=== PATIENT | female | born 1980 | race Caucasian/White ===

== ENCOUNTER 2020-05-18 17:49 | Emergency (ER) | payer OTHER ==
--- NOTE | 2020-05-18 19:24 | RAD REPORT ---
EXAM DESCRIPTION: CTSpine Lumbar Wo Con05/18/2020 7:08 pm CLINICAL HISTORY: Back injury with back pain and radiculopathy status post fall from a scooter COMPARISON: None TECHNIQUE: Computed axial tomography lumbar spine was obtained with coronal and sagittal reconstruct ion. All CT scans are performed using dose optimization technique as appropriate and may include automated exposure control or mA/KV adjustment according to patient size. FINDINGS: Bone plugs and anterior screws have been placed from L4-S1. The hardware is in good positi on. Left pedicular screws have been placed from L4-S1 No fracture or dislocation noted. A Schmorl's node invaginating into the superior vertebral endplate of T12. IMPRESSION: Negative for a lumbar fracture. If patient continues to have symptoms to suggest spinal canal pathology MRI would be recommended
--- NOTE | 2020-05-18 19:29 | RAD REPORT ---
EXAM DESCRIPTION: CT - Pelvis Wo Cont - 05/18/2020 7:08 pm CLINICAL HISTORY: Pelvic pain status post fall COMPARISON: None. TECHNIQUE: Computed axial tomography of the pelvis was obtained. Coronal and sagittal reconstruction performed All CT scans are performed using dose optimization technique as appropriate and may include automated exposure control or mA/KV adjustment according to patient size. FINDINGS: No fracture or dislocation is seen. Muscles are normal size and density. A subcutaneous contusion is not noted 33 millimeter right ovarian cyst without significant free fluid IMPRESSION: No fracture seen
--- NOTE | 2020-05-18 20:08 | ER ---
Nurse's Notes [facility] Name: Isa Hurst Age: 39 yrs Sex: Female : 1980 Arrival Date: 05/18/2020 Time: 17:[address] Private MD: Diagnosis: Fall from non-moving motorized mobility scooter;Chronic pain syndrome Presentation: 05/18 17:51 Chief complaint: EMS states: she was in a scooter shopping at [employer] and said she tw2 was turning around looking for her kids and slipped out of the scooter, says she has PTSD and she said she got really scared and worked up and her LEFT foot that is in a fracture Boot hurts her and her low back hurts her and she feels anxious. vs stable. Coronavirus screen: Patient denies a cough. Patient denies shortness of breath or difficulty breathing. Patient denies measured and/or subjective temperature greater than 100.4F prior to today's visit. Patient denies travel on a cruise ship or to a country the [facility] currently lists as an affected area. Patient denies contact with known and/or suspected case of COVID-19. Ebola Screen: Patient denies travel to an Ebola-affected area in the 21 days before illness onset. Initial Sepsis Screen: Does the patient meet any 2 criteria? HR > 90 bpm. No. Patient's initial sepsis screen is negative. Does the patient have a suspected source of infection? No. Patient's initial sepsis screen is negative. Risk Assessment: Do you want to hurt yourself or someone else? Patient reports no desire to harm self or others. Onset of symptoms was May 18, 2020. 17:51 Method Of Arrival: EMS: [facility] tw2 17:51 Acuity: ANGELIQUE 3 tw2 Triage Assessment: 17:54 General: Appears in no apparent distress. uncomfortable, obese, Behavior is anxious, tw2 talkative states "im nervous and anxious". Pain: Complains of pain in back and left foot. PATIENT CLERICAL ASSISTANT: 17:58 LMP N/A - tw2 Historical: - Allergies: 17:57 Sulfa (Sulfonamide Antibiotics); tw2 17:57 PENICILLINS; tw2 - PMHx: 17:57 PTSD; tw2 - Immunization history:: Adult Immunizations. - Social history:: Smoking status: . Screenin:57 Abuse screen: Denies threats or abuse. Nutritional screening: No deficits noted. tw2 Tuberculosis screening: No symptoms or risk factors identified. Fall Risk None identified. Assessment: 17:55 General: Appears uncomfortable, obese, well groomed, Behavior is cooperative, anxious. tw2 Pain: Complains of pain in left foot and back. Neuro: Level of Consciousness is awake, alert, obeys commands, Oriented to person, place, time, situation. Cardiovascular: Heart tones S1 S2 Patient's skin is warm and dry. Respiratory: Airway is patent Respiratory effort is even, unlabored, Respiratory pattern is regular, symmetrical, Breath sounds are clear bilaterally. GI: No signs and/or symptoms were reported involving the gastrointestinal system. Abdomen is round non-distended, obese, Bowel sounds present X 4 quads. : No signs and/or symptoms were reported regarding the genitourinary system. EENT: No signs and/or symptoms were reported regarding the EENT system. Derm: No signs and/or symptoms reported regarding the dermatologic system. Musculoskeletal: Circulation, motion, and sensation intact. Range of motion: intact in all extremities, Reports pain in left foot and back. 18:57 Reassessment: No changes from previously documented assessment. Patient and/or family tw2 updated on plan of care and expected duration. Pain level reassessed. Patient is alert, oriented x 3, equal unlabored respirations, skin warm/dry/pink. 19:00 Reassessment: Patient appears in no apparent distress at this time. Patient and/or jb4 family updated on plan of care and expected duration. Pain level reassessed. Patient is alert, oriented x 3, equal unlabored respirations, skin warm/dry/pink. 20:00 Reassessment: Patient appears in no apparent distress at this time. Patient and/or jb4 family updated on plan of care and expected duration. Pain level reassessed. Patient is alert, oriented x 3, equal unlabored respirations, skin warm/dry/pink. 20:15 Reassessment: D/c pending ride home. jb4 21:12 Reassessment: Patient appears in no apparent distress at this time. Patient and/or jb4 family updated on plan of care and expected duration. Pain level reassessed. Patient is alert, oriented x 3, equal unlabored respirations, skin warm/dry/pink. Pt reports pain has decreased. Verbalized understanding of d/c and follow up instructions. Questions and concerns addressed. Assisted to friends vehicle via wheelchair. 21:12 Cardiovascular: Capillary refill < 3 seconds in bilateral toes. jb4 Vital Signs: 17:51 BP 144 / 88; Pulse 100; Resp 17; Temp 97.9(TE); Pulse Ox 99% on R/A; Weight 104.33 kg tw2 (R); Height 5 ft. 5 in. (165.10 cm); Pain 10/10; 18:58 BP 146 / 92; Pulse 98; Resp 19; Pulse Ox 100% on R/A; tw2 20:30 BP 131 / 90; Pulse 86; Resp 16; Pulse Ox 100% on R/A; jb4 17:51 Body Mass Index 38.27 (104.33 kg, 165.10 cm) tw2 ED Course: 17:51 Patient arrived in ED. tw2 17:52 Bed in low position. Call light in reach. Side rails up X2. Pulse ox on. NIBP on. tw2 17:54 Triage completed. tw2 17:54 Arm band placed on. tw2 17:58 Melissa Suarez RN is Primary Nurse. tw2 18:15 Stacie Davenport FNP-C is PHCP. snw 18:16 Les Camacho MD is Attending Physician. snw 19:08 CT Lumbar Spine Wo Con In Process Unspecified. EDMS 19:08 CT Pelvis wo Cont In Process Unspecified. EDMS 19:09 Report given to JORGE A Garcia. tw2 19:17 Primary Nurse role handed off by Melissa Suarez RN jb4 19:17 Tien Ham, JORGE A is Primary Nurse. jb4 19:39 Foot Left 3 View XRAY In Process Unspecified. EDMS 21:14 No provider procedures requiring assistance completed. Patient did not have IV access jb4 during this emergency room visit. Administered Medications: 20:26 Drug: TORadol 30 mg Route: IM; Site: right gluteus; jb4 21:00 Follow up: Response: No adverse reaction; Pain is decreased jb4 Outcome: 20:07 Discharge ordered by . snw 21:14 Discharged to home via wheelchair, with friend. jb4 21:14 Condition: stable 21:14 Discharge instructions given to patient, Instructed on discharge instructions, follow up and referral plans. medication usage, Demonstrated understanding of instructions, follow-up care, medications, Prescriptions given X 2. 21:15 Patient left the ED. jb4 Signatures: Dispatcher [employer] EDMS Stacie Davenport, CARE WORKER-C CARE WORKER-Dougw Melissa Suarez, RN RN tw2 Tien Ham RN RN jb4 Corrections: (The following items were deleted from the chart) 19:05 17:51 Chief complaint: EMS states: she was in a scooter shopping at [employer] and tw2 said she was turning around looking for her kids and slipped out of the scooter, says she has PTSD and she said she got really scared and worked up and her LEFT foot that is in a Unna Boot hurts her and her low back hurts her and she feels anxious. vs stable. tw2
--- NOTE | 2020-05-18 20:08 | EDPHYS ---
Physician Documentation [facility] Name: Isa Hurst Age: 39 yrs Sex: Female : 1980 Arrival Date: 05/18/2020 Time: 17:[address] Private MD: Les Yan HPI: 05/18 21:03 This 39 yrs old Female presents to ER via EMS with complaints of Foot Pain, snw Low Back Pain. 21:15 The patient presents with pain, that is acute. The complaints affect the left hip and snw lateral aspect of left foot. Context: The problem was sustained at a store, resulted from the patient falling, while sitting, the patient can partially bear weight, uses a brace, Problem is a result from a previous injury: in walking boot with screws and place to fibula. Onset: The symptoms/episode began/occurred suddenly, just prior to arrival, and became persistent. Associated signs and symptoms: The patient has no apparent associated signs or symptoms, Pertinent positives:. Treatment prior to arrival includes: no previous treatment. Severity of symptoms: At their worst the symptoms were moderate. The patient has experienced similar episodes in the past. It is unknown whether or not the patient has recently seen a physician. LPN CARE MANAGER: 17:58 LMP N/A - tw2 Historical: - Allergies: 17:57 Sulfa (Sulfonamide Antibiotics); tw2 17:57 PENICILLINS; tw2 - PMHx: 17:57 PTSD; tw2 - Immunization history:: Adult Immunizations. - Social history:: Smoking status: . ROS: 21:17 Constitutional: Negative for fever, chills, and weight loss, Eyes: Negative for injury, snw pain, redness, and discharge, ENT: Negative for injury, pain, and discharge, Neck: Negative for injury, pain, and swelling, Cardiovascular: Negative for chest pain, palpitations, and edema, Respiratory: Negative for shortness of breath, cough, wheezing, and pleuritic chest pain, Abdomen/GI: Negative for abdominal pain, nausea, vomiting, diarrhea, and constipation, Back: positive for injury and pain, fell from scooter and landed on left buttock/hip : Negative for injury, bleeding, discharge, and swelling, Skin: Negative for injury, rash, and discoloration, Neuro: Negative for headache, weakness, numbness, tingling, and seizure, Psych: Negative for depression, anxiety, suicide ideation, homicidal ideation, and hallucinations. 21:17 MS/extremity: Positive for injury or acute deformity, pain, of the low back, left hip, left foot. Exam: 21:18 Constitutional: This is a well developed, well nourished patient who is awake, alert, snw and in no acute distress. Head/Face: Normocephalic, atraumatic. Eyes: Pupils equal round and reactive to light, extra-ocular motions intact. Lids and lashes normal. Conjunctiva and sclera are non-icteric and not injected. Cornea within normal limits. Periorbital areas with no swelling, redness, or edema. ENT: Nares patent. No nasal discharge, no septal abnormalities noted. Tympanic membranes are normal and external auditory canals are clear. Oropharynx with no redness, swelling, or masses, exudates, or evidence of obstruction, uvula midline. Mucous membranes moist. Neck: Trachea midline, no thyromegaly or masses palpated, and no cervical lymphadenopathy. Supple, full range of motion without nuchal rigidity, or vertebral point tenderness. No Meningismus. Chest/axilla: Normal chest wall appearance and motion. Nontender with no deformity. No lesions are appreciated. Cardiovascular: Regular rate and rhythm with a normal S1 and S2. No gallops, murmurs, or rubs. Normal PMI, no JVD. No pulse deficits. Respiratory: Lungs have equal breath sounds bilaterally, clear to auscultation and percussion. No rales, rhonchi or wheezes noted. No increased work of breathing, no retractions or nasal flaring. Abdomen/GI: Soft, non-tender, with normal bowel sounds. No distension or tympany. No guarding or rebound. No evidence of tenderness throughout. Back: No spinal tenderness. No costovertebral tenderness. Full range of motion. Skin: Warm, dry with normal turgor. Normal color with no rashes, no lesions, and no evidence of cellulitis. Neuro: Awake and alert, GCS 15, oriented to person, place, time, and situation. Cranial nerves II-XII grossly intact. Motor strength 5/5 in all extremities. Sensory grossly intact. Cerebellar exam normal. Normal gait. Psych: Awake, alert, with orientation to person, place and time. Behavior, mood, and affect are within normal limits. 21:18 Musculoskeletal/extremity: Extremities: grossly normal except: noted in the dorsum of left foot: swelling, tenderness, ROM: limited active range of motion due to pain, in the left ankle, limited passive range of motion due to pain, Circulation is intact in all extremities. Pulses: are normal with no appreciated deficits, Sensation intact. Vital Signs: 17:51 BP 144 / 88; Pulse 100; Resp 17; Temp 97.9(TE); Pulse Ox 99% on R/A; Weight 104.33 kg tw2 (R); Height 5 ft. 5 in. (165.10 cm); Pain 10/10; 18:58 BP 146 / 92; Pulse 98; Resp 19; Pulse Ox 100% on R/A; tw2 20:30 BP 131 / 90; Pulse 86; Resp 16; Pulse Ox 100% on R/A; jb4 17:51 Body Mass Index 38.27 (104.33 kg, 165.10 cm) tw2 MDM: 18:16 Patient medically screened. [facility] 20:09 Data reviewed: vital signs, nurses notes. Data interpreted: Pulse oximetry: on room air snw is 100 %. Interpretation: normal. Counseling: I had a detailed discussion with the patient and/or guardian regarding: the historical points, exam findings, and any diagnostic results supporting the discharge/admit diagnosis, radiology results, the need for outpatient follow up, to return to the emergency department if symptoms worsen or persist or if there are any questions or concerns that arise at home. Special discussion: I have referred the patient to see his PCP for further evaluation of high blood pressure. Based on the history and exam findings, there is no indication for further emergent testing or inpatient evaluation. I discussed with the patient/guardian the need to see the touch up painter for further evaluation of the symptoms. I discussed with the patient/guardian the need to see the primary care provider for further evaluation of the symptoms. 05/18 18:16 Order name: Foot Left 3 View XRAY; Complete Time: 20:33 snw 05/18 18:45 Order name: CT Lumbar Spine Wo Con; Complete Time: 19:35 snw 05/18 18:45 Order name: CT Pelvis wo Cont; Complete Time: 19:35 snw Administered Medications: 20:26 Drug: TORadol 30 mg Route: IM; Site: right gluteus; jb4 21:00 Follow up: Response: No adverse reaction; Pain is decreased jb4 Disposition: 05/19 13:30 Co-signature as Attending Physician, Les Camacho MD I agree with the assessment and fred plan of care. Disposition: 05/18/20 20:07 Discharged to Home. Impression: Fall from non-moving motorized mobility scooter, Chronic pain syndrome. - Condition is Stable. - Discharge Instructions: Contusion, Chronic Pain, Fall Prevention in the Home, Acupuncture. - Prescriptions for Diclofenac Sodium 75 mg Oral Tablet Sustained Release - take 1 tablet by ORAL route 2 times per day; 30 tablet. orphenadrine citrate 100 mg Oral Tablet Sustained Release - take 1 tablet by ORAL route 2 times per day As needed; 20 tablet. - Medication Reconciliation Form, Thank You Letter, Antibiotic Education, Prescription Opioid Use form. - Follow up: Emergency Department; When: As needed; Reason: Worsening of condition. Follow up: Private Physician; When: 2 - 3 days; Reason: Recheck today's complaints, Continuance of care, Re-evaluation by your physician. Signatures: Dispatcher [employer] [facility] Les Camacho MD MD cha Therrien, Shelly, MACHINE PACKER-C MACHINE PACKER-Csnw Melissa Suarez RN RN tw2 Tien Ham RN RN jb4 Corrections: (The following items were deleted from the chart) 05/18 19:43 18:17 Lumbar Spine 3 Views+RAD.RAD.BRZ ordered. [facility] 21:15 20:07 05/18/2020 20:07 Discharged to Home. Impression: Fall from non-moving motorized jb4 mobility scooter; Chronic pain syndrome. Condition is Stable. Forms are Medication Reconciliation Form, Thank You Letter, Antibiotic Education, Prescription Opioid Use. Follow up: Emergency Department; When: As needed; Reason: Worsening of condition. Follow up: Private Physician; When: 2 - 3 days; Reason: Recheck today's complaints, Continuance of care, Re-evaluation by your physician. snw
--- NOTE | 2020-05-18 20:19 | RAD REPORT ---
EXAM DESCRIPTION: RAD - Foot Left 3 View - 05/18/2020 7:40 pm CLINICAL HISTORY: Left Foot pain status post fall FINDINGS: An avulsion fracture involves the base of fifth metatarsal. Age is indeterminate. Clinical correlation is needed see patient has point tenderness to suggest acuity No dislocation
[2020-05-18] MEDS ORDERED: KETOROLAC 30 MG/ML INJ ONE (20:28)
[2020-05-18 21:33] VITALS: TEMP 97.9
[2020-05-18 21:34] VITALS: O2SAT 100
[2020-05-18 21:35] VITALS: BP 131/90
== END 2020-05-18 21:15 | disposition home or self-care (01) ==
LOC: ER 17:49
DX: G89.4 Chronic pain syndrome (principal); W05.1XXA Fall from non-moving nonmotorized scooter, initial encounter; Y93.9 Activity, unspecified; Y92.512 Supermarket, store or market as the place of occurrence of the external cause; Z88.0 Allergy status to penicillin; Z88.2 Allergy status to sulfonamides; F43.10 Post-traumatic stress disorder, unspecified
CPT/HCPCS: 72131; 72192; 96372; 99284

== ENCOUNTER 2021-07-07 17:34 | Emergency (ER) | payer OTHER ==
--- OUTSIDE RECORDS SUMMARY | 2021-07-07 17:39 | XMS REPORT | Continuity of Care Document ---
:1980 [address] [facility] t Address [address] [place] [address] Care Team Providers Name Role Phone Beatrice ZEPEDA, S Attending Clinician Gerry ZEPEDA Attending Clinician Serenity ZEPEDA, Odilia Attending Clinician Nakul DAILY, A Attending Clinician Problems This patient has no known problems. Allergies, Adverse Reactions, Alerts This patient has no known allergies or adverse reactions. Medications This patient has no known medications. Procedures This patient has no known procedures. Encounters Start End Encounter Admission Attending Care Care Encounter Source Date/Time Date/Time Type Type Clinicians Facility Department ID 2021-07-06 2021-07-07 Emergency SHARMILA Barron [id number] 22:23:00 06:23:00 Bety Bethany Kevin [id number] Tram [id number] [place] [id number] 2021-07-05 2021-07-05 Telephone SHARMILA Garrett [id number] 00:00:00 00:00:00 Mariah Kevin [id number] Tram [id number] [facility] [id number] [address] 2021-07-05 2021-07-05 Telephone SHARMILA Benton [id number] 00:00:00 [facility]00:[facility] [id number] Kevin [id number] Professio [phone] [facility] [address] 2021-06-05 2021-06-05 Office Gerry [facility] [id number] 08:25:23 09:35:48 Visit Mariah Kevin [id number] Tram [id number] Professio [id number] [facility] [address] Building 2021-06-05 2021-06-05 Prep For [facility] [id number] 00:00:00 00:00:00 Surgery Tere Hartley Kevin [id number] Tram [id number] Professio [phone] [facility] 204 [facility] Results This patient has no known results.
[2021-07-07 21:02] LABS: Urine Blood Negative (Negative); Urine Glucose Negative (Negative); Urine Protein Negative (Negative); Urine Specific Gravity 1.025 (1.005-1.030)
[2021-07-07 22:13] LABS: Urine Specific Gravity/Preg 1.025 (1.005-1.030)
[2021-07-08 00:06] LABS: Absolute Lymphocytes (CBC) 1.7 K/uL (0.7-4.9); Basophils % 0.7 % (0-1.3); Hematocrit 30.9 % (36.0-45.0); Lymphocytes % 21.9 % (15.3-44.8); MPV 6.9 fL (7.6-11.3); RBC Red Blood Cell Count 4.09 M/uL (3.86-4.86)
[2021-07-08 00:11] LABS: ALT/SGPT 48 U/L (12-78); AST/SGOT 32 U/L (15-37); Albumin 3.5 g/dL (3.4-5.0); Alkaline Phosphatase 91 U/L (45-117); BUN Blood Urea Nitrogen 13 mg/dL (7-18); Bicarbonate 26 mmol/L (21-32); Bilirubin Direct < 0.1 mg/dL (0-0.2); Bilirubin Total 0.3 mg/dL (0.2-1.0); Glucose Level 94 mg/dL (74-106); Lipase 132 U/L (73-393); Sodium Level 137 mmol/L (136-145)
[2021-07-08] MEDS ORDERED: NA CHLORIDE 0.9% 1,000 ML ONE (00:11)
[2021-07-08] MEDS ORDERED: MORPHINE 4 MG/ML SYR ONE (00:11)
[2021-07-08] MEDS ORDERED: ONDANSETRON 4 MG/2 ML VIAL ONE (00:11)
--- NOTE | 2021-07-08 03:00 | EDPHYS ---
Physician Documentation [facility] Name: Isa Hurst Age: 40 yrs Sex: Female : 1980 Arrival Date: 07/07/2021 Time: 17:36 Bed 10 Private MD: ED Physician Jalen Cruz HPI: 07/07 23:33 This 40 yrs old Female presents to ER via Ambulatory with complaints of pkl Abdominal Pain. 23:33 The patient presents with abdominal pain in the left upper quadrant, in the left lower pkl quadrant. Onset: The symptoms/episode began/occurred yesterday. The symptoms do not radiate. Associated signs and symptoms: none. The patient has experienced similar episodes in the past, a few times, Symptoms started in April 2021. Patient scheduled for exploratory lap on 07/17 21. 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 kg Historical: - Allergies: 19:23 PENICILLINS; kg 19:23 Azithromycin; kg - Home Meds: 19:25 Lisinopril Oral [Active]; gabapentin 300 mg oral tab three times a day [Active]; kg tramadol Oral [Active]; Lunesta oral [Active]; - PMHx: 19:23 Fibromyalgia; Chronic pain; PTSD; kg - PSHx: 19:23 back sx; Cholecystectomy; section; Neck Sx; Ankle Sx; Gastric bypass; Total kg abdominal hysterectomy; - Immunization history:: Adult Immunizations not up to date, Client reports receiving the 2nd dose of the Covid vaccine, Date received: April 2021 Client reports receiving the 1st dose of the Covid vaccine, March 2021. - Social history:: Smoking status: Patient denies any tobacco usage or history of. Patient uses alcohol, occasionally. ROS: 23:33 Eyes: Negative for injury, pain, redness, and discharge, ENT: Negative for injury, pkl pain, and discharge, Neck: Negative for injury, pain, and swelling, Cardiovascular: Negative for chest pain, palpitations, and edema, Respiratory: Negative for shortness of breath, cough, wheezing, and pleuritic chest pain. 23:33 Abdomen/GI: Positive for abdominal pain, of the left upper quadrant and left lower quadrant. 23:33 Back: Negative for pain at rest. 23:33 : Negative for urinary symptoms. 23:33 MS/extremity: Negative for acute changes. 23:33 Skin: Negative for rash. 23:33 Neuro: Negative for altered mental status, loss of consciousness. Exam: 23:33 Head/Face: Normocephalic, atraumatic. Eyes: Pupils equal round and reactive to light, pkl extra-ocular motions intact. Lids and lashes normal. Conjunctiva and sclera are non-icteric and not injected. Cornea within normal limits. Periorbital areas with no swelling, redness, or edema. ENT: Nares patent. No nasal discharge, no septal abnormalities noted. Tympanic membranes are normal and external auditory canals are clear. Oropharynx with no redness, swelling, or masses, exudates, or evidence of obstruction, uvula midline. Mucous membranes moist. Neck: Trachea midline, no thyromegaly or masses palpated, and no cervical lymphadenopathy. Supple, full range of motion without nuchal rigidity, or vertebral point tenderness. No Meningismus. Chest/axilla: Normal chest wall appearance and motion. Nontender with no deformity. No lesions are appreciated. Cardiovascular: Regular rate and rhythm with a normal S1 and S2. No gallops, murmurs, or rubs. Normal PMI, no JVD. No pulse deficits. Respiratory: Lungs have equal breath sounds bilaterally, clear to auscultation and percussion. No rales, rhonchi or wheezes noted. No increased work of breathing, no retractions or nasal flaring. 23:33 Abdomen/GI: Bowel sounds: normal, Palpation: soft, mild abdominal tenderness, in the left upper quadrant and left lower quadrant. 23:33 Back: Exam negative for acute changes. 23:33 : Exam negative for acute changes. 23:33 Musculoskeletal/extremity: Exam is negative for acute changes. 23:33 Skin: Exam negative for rash. 23:33 Neuro: Orientation: is normal, Mentation: is normal, Cranial nerves: grossly normal, Motor: Vital Signs: 19:19 BP 140 / 99; Pulse 97; Resp 17; Temp 97.1(O); Pulse Ox 98% ; Weight 124.74 kg (R); kg Height 5 ft. 5 in. (165.10 cm); Pain 8/10; 0807 00:30 BP 146 / 101; Pulse 78; Resp 16; Pulse Ox 99% on R/A; jb4 03:15 BP 137 / 94; Pulse 81; Resp 16; Pulse Ox 99% on R/A; jb4 07/07 19:19 Body Mass Index 45.76 (124.74 kg, 165.10 cm) kg MDM: 07/07 23:20 Patient medically screened. pkl 07/08 02:55 Data reviewed: vital signs, nurses notes, lab test result(s), radiologic studies, CT pkl scan. ED course: Patient feeling better. Discussed lab and CT Scan result with patient, Advised to follow up with PCP in 2 to 3 days. Patient understood instructions. 07/07 19:30 Order name: Basic Metabolic Panel; Complete Time: 00:23 kg 07/07 19:30 Order name: CBC with Diff; Complete Time: 00:23 kg 07/07 19:30 Order name: Hepatic Function; Complete Time: 00:23 kg 07/07 19:30 Order name: Lipase; Complete Time: 00:23 kg 07/07 21:01 Order name: Urine Dipstick-Ancillary; Complete Time: 23:30 EDMS 07/07 21:12 Order name: Urine --Ancillary (enter results); Complete Time: 23:30 tt3 07/07 19:30 Order name: IV Saline Lock; Complete Time: 23:42 kg 07/07 19:30 Order name: Labs collected and sent; Complete Time: 23:42 kg 07/07 19:30 Order name: XRAY Abdomen 1 View kg 07/07 23:31 Order name: CT Abd/Pelvis - IV Contrast Only pkl Administered Medications: 00:05 Drug: NS 0.9% 1000 ml Route: IV; Rate: 125 ml/hr; Site: right antecubital; jb4 03:20 Follow up: Response: No adverse reaction; IV Status: Order to discontinue infusion jb4 00:05 Drug: morphine 4 mg Route: IVP; Site: right antecubital; jb4 00:35 Follow up: Response: No adverse reaction; Marked relief of symptoms; Pain is decreased; jb4 RASS: Alert and Calm (0) 00:05 Drug: Zofran (Ondansetron) 4 mg Route: IVP; Site: right antecubital; jb4 00:35 Follow up: Response: No adverse reaction; Marked relief of symptoms jb4 Disposition Summary: 07/08/21 03:00 Discharge Ordered Location: Home pkl Condition: Stable pkl Diagnosis - Abdominal pain pkl Followup: pkl - With: Private Physician - When: 2 - 3 days - Reason: Re-evaluation by your physician Forms: - Medication Reconciliation Form pkl - Thank You Letter pkl - Antibiotic Education pkl - Prescription Opioid Use pkl Signatures: Dispatcher [employer] Jalen Perez MD MD pkl Tien Ham RN RN jb4 Carolyn Juarez RN RN kg
--- NOTE | 2021-07-08 03:00 | ER ---
Nurse's Notes [facility] Name: Isa Hurst Age: 40 yrs Sex: Female : 1980 Arrival Date: 07/07/2021 Time: 17:36 Bed 10 Private MD: Diagnosis: Abdominal pain Presentation: 07/07 19:19 Chief complaint: Patient states: Sent over from PCP for elevated WBC. Is scheduled for kg exploratory abdominal sx 07/17. Abdominal pain since APRIL. Coronavirus screen: Client denies travel out of the [place] in the last 14 days. At this time, unable to obtain information related to travel outside the [place] At this time, the client does not indicate any symptoms associated with coronavirus-19. Ebola Screen: Patient negative for fever greater than or equal to 101.5 degrees Fahrenheit, and additional compatible Ebola Virus Disease symptoms Patient denies exposure to infectious person. Patient denies travel to an Ebola-affected area in the 21 days before illness onset. Initial Sepsis Screen: Does the patient meet any 2 criteria? No. Patient's initial sepsis screen is negative. Risk Assessment: Do you want to hurt yourself or someone else? Patient reports no desire to harm self or others. Onset of symptoms was July 06, 2021. 19:19 Method Of Arrival: Ambulatory kg 19:19 Acuity: ANGELIQUE 3 kg 19:28 Initial Sepsis Screen: Does the patient have a suspected source of infection? No. kg Patient's initial sepsis screen is negative. Triage Assessment: 19:27 General: Appears in no apparent distress. Behavior is calm, cooperative, appropriate kg for age, quiet. Pain: Complains of pain in left lower quadrant Pain currently is 8 out of 10 on a pain scale. at worst was 10 out of 10 on a pain scale. level that patient reports is acceptable is 3 out of 10 on a pain scale. Quality of pain is described as aching, stabbing. GI: Reports lower abdominal pain, nausea. 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 kg Historical: - Allergies: 19:23 PENICILLINS; kg 19:23 Azithromycin; kg - Home Meds: 19:25 Lisinopril Oral [Active]; gabapentin 300 mg oral tab three times a day [Active]; kg tramadol Oral [Active]; Lunesta oral [Active]; - PMHx: 19:23 Fibromyalgia; Chronic pain; PTSD; kg - PSHx: 19:23 back sx; Cholecystectomy; section; Neck Sx; Ankle Sx; Gastric bypass; Total kg abdominal hysterectomy; - Immunization history:: Adult Immunizations not up to date, Client reports receiving the 2nd dose of the Covid vaccine, Date received: April 2021 Client reports receiving the 1st dose of the Covid vaccine, March 2021. - Social history:: Smoking status: Patient denies any tobacco usage or history of. Patient uses alcohol, occasionally. Screenin:27 Abuse screen: Denies threats or abuse. Denies injuries from another. Nutritional kg screening: No deficits noted. Tuberculosis screening: No symptoms or risk factors identified. Fall Risk None identified. Assessment: 23:30 General: Appears in no apparent distress. uncomfortable, Behavior is calm, cooperative, jb4 appropriate for age. Pain: Complains of pain in abdomen. Neuro: Level of Consciousness is awake, alert, obeys commands, Oriented to person, place, time, situation. Cardiovascular: Patient's skin is warm and dry. Respiratory: Airway is patent Respiratory effort is even, unlabored, Respiratory pattern is regular, symmetrical. GI: Abdomen is round non-distended, obese, Reports upper abdominal pain, nausea. : No signs and/or symptoms were reported regarding the genitourinary system. EENT: No signs and/or symptoms were reported regarding the EENT system. Derm: Skin is intact, Skin is pink, warm \T\ dry. Musculoskeletal: Circulation, motion, and sensation intact. Range of motion: intact in all extremities. 07/08 00:30 Reassessment: Patient appears in no apparent distress at this time. Patient and/or jb4 family updated on plan of care and expected duration. Pain level reassessed. Patient is alert, oriented x 3, equal unlabored respirations, skin warm/dry/pink. 01:30 Reassessment: Patient appears in no apparent distress at this time. Patient and/or jb4 family updated on plan of care and expected duration. Pain level reassessed. Patient is alert, oriented x 3, equal unlabored respirations, skin warm/dry/pink. 03:00 Reassessment: Patient appears in no apparent distress at this time. Patient and/or jb4 family updated on plan of care and expected duration. Pain level reassessed. Patient is alert, oriented x 3, equal unlabored respirations, skin warm/dry/pink. Vital Signs: 07/07 19:19 BP 140 / 99; Pulse 97; Resp 17; Temp 97.1(O); Pulse Ox 98% ; Weight 124.74 kg (R); kg Height 5 ft. 5 in. (165.10 cm); Pain 8/10; 07/08 00:30 BP 146 / 101; Pulse 78; Resp 16; Pulse Ox 99% on R/A; jb4 03:15 BP 137 / 94; Pulse 81; Resp 16; Pulse Ox 99% on R/A; jb4 07/07 19:19 Body Mass Index 45.76 (124.74 kg, 165.10 cm) kg ED Course: 07/07 17:36 Patient arrived in ED. mr 19:23 Triage completed. kg 19:28 Arm band placed on right wrist. kg 19:28 No provider procedures requiring assistance completed. kg 20:09 XRAY Abdomen 1 View In Process Unspecified. EDMS 23:20 Jalen Cruz MD is Attending Physician. pkl 23:21 Tien Ham, JORGE A is Primary Nurse. jb4 23:40 Initial lab(s) drawn, by ga, sent to lab. Inserted saline lock: 20 gauge in right jb4 antecubital area, using aseptic technique. Blood collected. 07/08 02:26 CT Abd/Pelvis - IV Contrast Only In Process Unspecified. EDMS 03:15 IV discontinued, intact, bleeding controlled, No redness/swelling at site. Pressure jb4 dressing applied. Administered Medications: 00:05 Drug: NS 0.9% 1000 ml Route: IV; Rate: 125 ml/hr; Site: right antecubital; jb4 03:20 Follow up: Response: No adverse reaction; IV Status: Order to discontinue infusion jb4 00:05 Drug: morphine 4 mg Route: IVP; Site: right antecubital; jb4 00:35 Follow up: Response: No adverse reaction; Marked relief of symptoms; Pain is decreased; jb4 RASS: Alert and Calm (0) 00:05 Drug: Zofran (Ondansetron) 4 mg Route: IVP; Site: right antecubital; jb4 00:35 Follow up: Response: No adverse reaction; Marked relief of symptoms jb4 Outcome: 03:00 Discharge ordered by . salomón 03:15 Discharged to home ambulatory. jb4 03:15 Condition: stable 03:15 Discharge instructions given to patient, Instructed on discharge instructions, follow up and referral plans. Demonstrated understanding of instructions, follow-up care. 03:21 Patient left the ED. jb4 Signatures: Dispatcher [employer] EDJalen Grace MD MD pkl RiveraAlmita mr Tien Ham RN RN jb4 Carolyn Juarez RN RN kg
[2021-07-08 03:34] VITALS: TEMP 97.1
[2021-07-08 03:38] VITALS: O2SAT 99
[2021-07-08 03:47] VITALS: BP 137/94
--- NOTE | 2021-07-08 21:06 | RAD REPORT ---
EXAM DESCRIPTION: CT - Abdomen Pelvis W Contrast - 07/08/2021 6:53 am COMPARISON: None. CLINICAL HISTORY: ABD PAIN TECHNIQUE: CT of the abdomen and pelvis was acquired with IV contrast material. Coronal and sagitt al reconstructions were obtained. Automated exposure control was utilized on this examination as a dose lowering technique. FINDINGS: Lung bases: Bibasilar linear opacities are present. Liver: Normal. Gallbladder and biliary: Cholecystectomy. Unremarkable biliary tree. Pancreas: Normal. Spleen: Normal. Adrenal glands: Normal adrenal glands. Kidneys: Normal kidneys Stomach and Small Bowel: Surgical changes of the stomach. Normal small bowel. Urinary bladder: Normal. Uterus and Adnexa: Hysterectomy. Colon and Appendix: Moderate colonic diverticulosis. No evidence of appendicitis. Retroperitoneum and lymph nodes: Normal. Vascular: Normal. Peritoneal cavity: No ascites or free air. Musculoskeletal and soft tissues: Soft tissues are unremarkable. Mild degenerative changes of the sac roiliac joints, greater on the left. Posterior fusion of L4-S1. No aggressive bone lesions. No comp ression fracture. IMPRESSION: 1. No acute intra-abdominal abnormality. 2. Surgical changes of the stomach. 3. Moderate colonic diverticulosis. 4. Bibasilar linear opacities may represent atelectasis, scarring, and less likely early pneumonia. Electronically signed by: Canelo Zarate MD 07/08/2021 2:49 AM CDT Due to temporary technical issues with the PACS/Fluency reporting system, reports are being signed by the in house radiologists without review as a courtesy to insure prompt reporting. The interpreting radiologist is fully responsible for the content of the report.
== END 2021-07-08 03:21 | disposition home or self-care (01) ==
LOC: ER 17:34
DX: R10.9 Unspecified abdominal pain (principal); G89.29 Other chronic pain; Z88.0 Allergy status to penicillin; Z88.3 Allergy status to other anti-infective agents
CPT/HCPCS: 96361; 85025; 80048; 36415; 81025; 82565; 80076; 81003; 83690; 74177; 74018; 96375; 96374; 99284; Q9967

== ENCOUNTER 2022-04-12 17:48 | Emergency (ER) | payer BC ==
[2022-04-12] MEDS ORDERED: MORPHINE 4 MG/ML SYR ONE (18:16)
[2022-04-12] MEDS ORDERED: FAMOTIDINE 20 MG/2 ML VIAL IV ONE (18:16)
[2022-04-12] MEDS ORDERED: ONDANSETRON 4 MG/2 ML VIAL ONE (18:16)
[2022-04-12 18:33] LABS: Absolute Lymphocytes (CBC) 1.5 K/uL (0.7-4.9); Hematocrit 27.4 % (36.0-45.0); Lymphocytes % 19.8 % (15.3-44.8); MPV 8.2 fL (7.6-11.3); RBC Red Blood Cell Count 4.37 M/uL (3.86-4.86)
[2022-04-12 18:43] LABS: Albumin 3.7 g/dL (3.4-5.0); Bilirubin Total 0.5 mg/dL (0.2-1.0); Potassium 3.9 mmol/L (3.5-5.1); Protein, Total 7.4 g/dL (6.4-8.2)
[2022-04-12] MEDS ORDERED: PROMETHAZINE INJ 25 MG/ML AMP ONE ×2 (19:03→20:32)
--- NOTE | 2022-04-12 19:53 | RAD REPORT ---
EXAM DESCRIPTION: CT - Abdomen Pelvis W Contrast - 04/12/2022 7:25 pm CLINICAL HISTORY: Abdominal pain COMPARISON: 2020 TECHNIQUE: Computed axial tomography of the abdomen pelvis was obtained. 100 cc Isovue-300 was admin istered intravenously. Oral contrast was not requested which limits evaluation of bowel and appendix. All CT scans are performed using dose optimization technique as appropriate and may include automated exposure control or mA/KV adjustment according to patient size. FINDINGS: The liver, spleen, pancreas, adrenal and kidneys appear unremarkable. There is no evidence of diverticulitis. Hysterectomy. Postsurgical changes involve the lumbar spine and stomach . Cholecystectomy 3.6 centimeter left ovarian cyst without significant free fluid. 2.9 centimeter right ovarian cyst IMPRESSION: Bilateral ovarian cysts without significant free-fluid
--- NOTE | 2022-04-12 20:15 | ER ---
Nurse's Notes [facility] Name: Isa Hurst Age: 41 yrs Sex: Female : 1980 Arrival Date: 04/12/2022 Time: 17:55 Bed 8 Private MD: Diagnosis: GI Bleed/ Gastrointestinal hemorrhage, unspecified-lower;Anemia, unspecified;Abdominal pain, Generalized;Obesity, unspecified;Acute gastritis without bleeding Presentation: 04/12 17:55 Chief complaint: EMS states: Pt was picked up at Dr Esqueda's office; pt has had "severe" vg1 NVD x 2 days with LUQ and LLQ pain; pt had a endoscopy approximately two weeks ago and was dx with HPylori; Pt was given 12.5 mg of Phenergan IVP x1 and 4 mg of Zofan IVP x1; pt actively vomiting. Coronavirus screen: Vaccine status: Patient reports receiving the 2nd dose of the covid vaccine. Client denies travel out of the [place] in the last 14 days. Ebola Screen: Patient denies exposure to infectious person. Patient denies travel to an Ebola-affected area in the 21 days before illness onset. Initial Sepsis Screen: Does the patient meet any 2 criteria? No. Patient's initial sepsis screen is negative. Does the patient have a suspected source of infection? No. Patient's initial sepsis screen is negative. Risk Assessment: Do you want to hurt yourself or someone else? Patient reports no desire to harm self or others. Onset of symptoms was April 10, 2022. 17:55 Method Of Arrival: EMS: [facility] vg1 17:55 Acuity: ANGELIQUE 3 vg1 Triage Assessment: 18:01 General: Appears uncomfortable, Behavior is cooperative. Pain: Complains of pain in vg1 left upper quadrant and left lower quadrant Pain currently is 10 out of 10 on a pain scale. Pain began 2-3 days ago. EENT: No signs and/or symptoms were reported regarding the EENT system. Neuro: Rose Agitation-Sedation Scale (RASS): +1 Restless Level of Consciousness is awake, alert, obeys commands, Oriented to person, place, time, situation. Cardiovascular: Patient's skin is warm and dry. Respiratory: Airway is patent Respiratory effort is even, unlabored. GI: Abdomen is round obese, Abdomen is tender to palpation in left upper quadrant and left lower quadrant Reports diarrhea, nausea, vomiting. : No signs and/or symptoms were reported regarding the genitourinary system. Derm: Skin is intact, is healthy with good turgor. Musculoskeletal: Circulation, motion, and sensation intact. 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 - Social history:: Smoking status: Patient denies any tobacco usage or history of. Screenin:06 Abuse screen: Denies threats or abuse. Nutritional screening: No deficits noted. vg1 Tuberculosis screening: No symptoms or risk factors identified. Fall Risk No fall in past 12 months (0 pts). No secondary diagnosis (0 pts). IV access (20 points). Ambulatory Aid- None/Bed Rest/Nurse Assist (0 pts). Gait- Normal/Bed Rest/Wheelchair (0 pts) Mental Status- Oriented to own ability (0 pts). Total Chase Fall Scale indicates No Risk (0-24 pts). Assessment: 18:06 Reassessment: SEE TRIAGE. vg1 20:44 General: Appears uncomfortable. Respiratory: Respiratory effort is even, unlabored, as6 Respiratory pattern is regular, symmetrical. GI: Pt is actively vomiting. Vital Signs: 17:55 BP 139 / 100; Pulse 98; Resp 20; Temp 98.0; Pulse Ox 98% on R/A; Weight 122.47 kg; vg1 Height 5 ft. 5 in. (165.10 cm); Pain 10/10; 20:45 BP 146 / 81; Pulse 70; Resp 18 S; Pulse Ox 100% on R/A; as6 22:00 BP 156 / 85; Pulse 71; Resp 16 S; Pulse Ox 100% on R/A; as6 22:37 BP 160 / 85; Pulse 76; Resp 12 S; Pulse Ox 100% on R/A; as6 23:31 BP 156 / 89; Pulse 71; Resp 11 S; Pulse Ox 97% on R/A; as6 17:55 Body Mass Index 44.93 (122.47 kg, 165.10 cm) vg1 ED Course: 17:55 Patient arrived in ED. vg1 17:57 Garett Vargas DO is Attending Physician. ms3 18:01 Triage completed. vg1 18:01 Miracle Garcia, JORGE A is Primary Nurse. jh6 18:01 Arm band placed on. vg1 18:06 Patient has correct armband on for positive identification. Placed in gown. Bed in low vg1 position. Call light in reach. Side rails up X2. 18:06 Maintain EMS IV. Dressing intact. Good blood return noted. Site clean \\T\\ dry. Gauge \\T\\ vg 1 site: 22 Left wrist. 19:27 CT Abd/Pelvis - IV Contrast Only In Process Unspecified. EDMS 19:32 Attending Physician role handed off by Garett Vargas DO [facility] 19:32 Les Camacho MD is Attending Physician. fred 20:18 initiated a transfer with Lianne Ryder from [facility] Transfer [place]. mw2 20:54 XRAY Chest (1 view) In Process Unspecified. EDMS 21:[address] Camacho with Dr. Lantigua from [facility]. mw2 21:59 Inserted saline lock: 22 gauge in right antecubital area, using aseptic technique. oe Blood collected. 22:16 administrative approval given by Lianne Ryder/ patient has been accepted to [address] bed 410/ Dr. Lantigua accepted the patient in transfer/report to be called to [phone]. 23:39 No provider procedures requiring assistance completed. Patient transferred, IV remains as6 in place. Administered Medications: 18:11 Drug: Zofran (Ondansetron) 4 mg Route: IVP; Site: left wrist; vg1 23:32 Follow up: Response: No adverse reaction as6 18:13 Drug: Pepcid (famotidine) 20 mg Route: IVP; Site: left wrist; vg1 23:32 Follow up: Response: No adverse reaction as6 18:15 Drug: morphine 4 mg Route: IVP; Site: left wrist; vg1 23:40 Follow up: Response: No adverse reaction as6 19:07 Drug: Phenergan (promethazine) 12.5 mg Route: IM; Site: right deltoid; vg1 23:40 Follow up: Response: No adverse reaction as6 20:43 Drug: ProTONIX (pantoprazole) 80 mg Route: IVP; Site: left wrist; as6 23:40 Follow up: Response: No adverse reaction as6 20:43 Drug: ProTONIX (pantoprazole) 8 mg/hr Route: IV; Rate: 25 ml/hr; Site: left wrist; as6 23:41 Follow up: IV Status: Infusion continued upon transfer as6 20:44 Drug: Dilaudid (HYDROmorphone) 1 mg Route: IVP; Site: left wrist; as6 23:33 Follow up: Response: No adverse reaction; RASS: Alert and Calm (0) as6 20:44 Drug: Phenergan (promethazine) 12.5 mg Route: IVP; Site: left wrist; as6 23:32 Follow up: Response: No adverse reaction as6 22:10 Drug: Reglan (metoCLOPramide) 10 mg Route: IVP; Site: right antecubital; as6 23:32 Follow up: Response: No adverse reaction as6 Medication: 23:40 VIS not applicable for this client. as6 Outcome: 20:14 ER care complete, transfer ordered by MD. ibarra 23:39 Transferred by ground EMS to [facility], Transfer form completed. as6 X-rays sent w/ patient. 23:39 Condition: stable 23:39 Instructed on the need for transfer. 23:41 Patient left the ED. as6 Signatures: Dispatcher [employer] EDMS Les Camacho MD MD cha Espinosa, [place] oe [place], MyKena mw2 Shasta Johnson, RN RN vg1 Garett Vargas DO DO ms3 Stuart Johnson, JORGE A RN as6 Miracle Garcia RN RN jh6 Corrections: (The following items were deleted from the chart) 18:18 16:11 Zofran (Ondansetron) 4 mg IVP in left wrist vg1 vg1
--- NOTE | 2022-04-12 20:15 | EDPHYS ---
Physician Documentation [facility] Name: Isa Hurst Age: 41 yrs Sex: Female : 1980 Arrival Date: 04/12/2022 Time: 17:55 Bed 8 Private MD: DARCIE Physician Les Camacho HPI: 04/12 17:58 This 41 yrs old Female presents to ER via Unassigned with complaints of ms3 Nausea/Vomiting/Diarrhea. 17:58 The patient presents to the emergency department with nausea, vomiting, diarrhea. ms3 Onset: The symptoms/episode began/occurred 2 day(s) ago. Possible causes: unknown. The symptoms are aggravated by nothing. The symptoms are alleviated by nothing. Associated signs and symptoms: Pertinent positives: abdominal pain, GI bleeding, nausea, vomiting. 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 - Social history:: Smoking status: Patient denies any tobacco usage or history of. ROS: 17:58 Constitutional: Negative for fever, and chills. Eyes: Negative for injury, pain, ms3 redness, and discharge, Neck: Negative for injury, pain, and swelling, Cardiovascular: Negative for chest pain, and palpitations. Respiratory: Negative for shortness of breath, cough, wheezing, and pleuritic chest pain, MS/Extremity: Negative for injury and deformity, Skin: Negative for injury, rash, and discoloration. 17:58 Abdomen/GI: Positive for nausea, vomiting, and diarrhea, rectal pain. 17:58 All other systems are negative. Exam: 17:58 Constitutional: This is a well developed, well nourished patient who is awake, alert, ms3 and in no acute distress. Head/Face: Normocephalic, atraumatic. Chest/axilla: Normal chest wall appearance and motion. Nontender with no deformity. Cardiovascular: Regular rate and rhythm with a normal S1 and S2. No gallops, murmurs, or rubs. Normal PMI, no JVD. No pulse deficits. Respiratory: Lungs have equal breath sounds bilaterally, clear to auscultation and percussion. No rales, rhonchi or wheezes noted. No increased work of breathing, no retractions or nasal flaring. Psych: Awake, alert, with orientation to person, place and time. Behavior, mood, and affect are within normal limits. 17:58 Abdomen/GI: Inspection: obese Bowel sounds: diminished, Palpation: moderate abdominal tenderness, in the left upper quadrant and left lower quadrant, Rectal exam: rectal tone normal, Stool: brown, guaiac positive, hemorrhoid(s), external, with pain. 20:05 Abdomen/GI: Rectal exam: rectal tone normal, Stool: guaiac positive, trace positive, fred Liver: no appreciated palpable abnormalities, Hernia: not appreciated. 21:25 ECG was reviewed by the Attending Physician. [facility] Vital Signs: 17:55 BP 139 / 100; Pulse 98; Resp 20; Temp 98.0; Pulse Ox 98% on R/A; Weight 122.47 kg; vg1 Height 5 ft. 5 in. (165.10 cm); Pain 10/10; 20:45 BP 146 / 81; Pulse 70; Resp 18 S; Pulse Ox 100% on R/A; as6 22:00 BP 156 / 85; Pulse 71; Resp 16 S; Pulse Ox 100% on R/A; as6 22:37 BP 160 / 85; Pulse 76; Resp 12 S; Pulse Ox 100% on R/A; as6 23:31 BP 156 / 89; Pulse 71; Resp 11 S; Pulse Ox 97% on R/A; as6 17:55 Body Mass Index 44.93 (122.47 kg, 165.10 cm) 1 MDM: 17:57 Patient medically screened. ms3 17:58 Differential diagnosis: Nonspecific abd pain, gastritis, diverticulitis, ms3 gastroenteritis. 20:02 Data reviewed: vital signs, nurses notes, lab test result(s), EKG, radiologic studies, [facility] CT scan. Data interpreted: pvc monitor: rate is 98 beats/min, rhythm is regular, Pulse oximetry: on room air is 98 %. Test interpretation: by ED physician or midlevel provider: ECG, plain radiologic studies. Counseling: I had a detailed discussion with the patient and/or guardian regarding: the historical points, exam findings, and any diagnostic results supporting the discharge/admit diagnosis, lab results, radiology results, the need for further work-up and treatment in the hospital. 04/12 17:58 Order name: CBC with Diff; Complete Time: 19:44 ms3 04/12 17:58 Order name: CMP; Complete Time: 19:44 ms3 04/12 17:58 Order name: Lipase; Complete Time: 19:44 ms 04/12 18:43 Order name: COVID-19 SARS RT PCR (Document "Date of Onset" if Symptomatic); Complete [email or web address] Time: 21:16 04/12 20:02 Order name: Type And Screen [facility] 04/12 20:05 Order name: Basic Metabolic Panel [facility] 04/12 17:58 Order name: CT Abd/Pelvis - IV Contrast Only; Complete Time: 19:58 ms 04/12 20:05 Order name: Magnesium [facility] 04/12 20:05 Order name: NT PRO-BNP [facility] 04/12 20:05 Order name: PT-INR [facility] 04/12 20:05 Order name: Troponin HS [facility] 04/12 20:05 Order name: XRAY Chest (1 view); Complete Time: 21:39 [facility] 04/12 22:12 Order name: Urine Dipstick-Ancillary EDIL 04/12 17:58 Order name: IV Saline Lock; Complete Time: 18:01 ms 04/12 17:58 Order name: Labs collected and sent; Complete Time: 18:17 ms 04/12 17:58 Order name: Urine Dipstick-Ancillary (obtain specimen); Complete Time: 22:12 [facility] [place] 04/12 20:02 Order name: IV Saline Lock - Large Bore; Complete Time: 21:51 [facility] 04/12 20:05 Order name: EKG; Complete Time: 20:05 [facility] 04/12 20:05 Order name: Cardiac monitoring; Complete Time: 21:25 [facility] 04/12 20:05 Order name: EKG - Nurse/Tech; Complete Time: 21:25 [facility] 04/12 20:05 Order name: O2 Per Protocol; Complete Time: 20:43 [facility] 04/12 20:05 Order name: O2 Sat Monitoring; Complete Time: 20:43 fred EC:25 Rate is 72 beats/min. Rhythm is regular. QRS [place] is Normal. VA interval is normal. QRS fred interval is normal. QT interval is normal. No Q waves. T waves are Normal. No ST changes noted. Clinical impression: Normal ECG and No evidence of ischemia. Interpreted by me. Reviewed by me. Administered Medications: 18:11 Drug: Zofran (Ondansetron) 4 mg Route: IVP; Site: left wrist; vg1 23:32 Follow up: Response: No adverse reaction as6 18:13 Drug: Pepcid (famotidine) 20 mg Route: IVP; Site: left wrist; vg1 23:32 Follow up: Response: No adverse reaction as6 18:15 Drug: morphine 4 mg Route: IVP; Site: left wrist; vg1 23:40 Follow up: Response: No adverse reaction as6 19:07 Drug: Phenergan (promethazine) 12.5 mg Route: IM; Site: right deltoid; vg1 23:40 Follow up: Response: No adverse reaction as6 20:43 Drug: ProTONIX (pantoprazole) 80 mg Route: IVP; Site: left wrist; as6 23:40 Follow up: Response: No adverse reaction as6 20:43 Drug: ProTONIX (pantoprazole) 8 mg/hr Route: IV; Rate: 25 ml/hr; Site: left wrist; as6 23:41 Follow up: IV Status: Infusion continued upon transfer as6 20:44 Drug: Dilaudid (HYDROmorphone) 1 mg Route: IVP; Site: left wrist; as6 23:33 Follow up: Response: No adverse reaction; RASS: Alert and Calm (0) as6 20:44 Drug: Phenergan (promethazine) 12.5 mg Route: IVP; Site: left wrist; as6 23:32 Follow up: Response: No adverse reaction as6 22:10 Drug: Reglan (metoCLOPramide) 10 mg Route: IVP; Site: right antecubital; as6 23:32 Follow up: Response: No adverse reaction as6 Disposition Summary: 04/12/22 20:14 Transfer Ordered Transfer Location: [facility] fred Reason: Higher level of care fred Condition: Stable fred Problem: new fred Symptoms: have improved fred Accepting Physician: to [facility](04/12/22 23:41) as6 Diagnosis - GI Bleed/ Gastrointestinal hemorrhage, unspecified - lower fred - Anemia, unspecified fred - Abdominal pain, Generalized fred - Obesity, unspecified fred - Acute gastritis without bleeding fred Forms: - Medication Reconciliation Form fred - SBAR form fred Signatures: Dispatcher [employer] EDLes Rayo MD MD cha Attema, Lee, FNP-C DANCING INSTRUCTOR-Cla1 Shasta Johnson, RN RN vg1 Garett Vargas DO DO ms3 Stuart Johnson RN RN as6 Corrections: (The following items were deleted from the chart) 23:41 20:14 to [facility] fred as6
[2022-04-12] MEDS ORDERED: PANTOPRAZOLE 40 MG INJ ONE (20:33)
[2022-04-12] MEDS ORDERED: HYDROMORPHONE HCL 1 MG/ML INJ ONE (20:33)
[2022-04-12] MEDS ORDERED: NA CHLORIDE 0.9% 250 ML ONE (20:33)
--- NOTE | 2022-04-12 21:30 | RAD REPORT ---
EXAM DESCRIPTION: Emily Single View04/12/2022 8:52 pm CLINICAL HISTORY: Abdominal pain COMPARISON: March 2022 FINDINGS: The lungs appear clear of acute infiltrate. The heart is normal size IMPRESSION: No acute abnormalities displayed
[2022-04-12] MEDS ORDERED: METOCLOPRAMIDE 10 MG/2mL INJ ONE (22:06)
[2022-04-12 22:12] LABS: Urine Blood Negative (Negative); Urine Glucose Negative (Negative); Urine Protein Negative (Negative); Urine Specific Gravity 1.015 (1.005-1.030)
[2022-04-12 22:20] LABS: Protime INR 1.1
[2022-04-12 22:33] LABS: Magnesium 2.2 mg/dL (1.8-2.4); Troponin High Sensitivity 7.6 pg/mL (<58.9)
[2022-04-13 04:18] VITALS: TEMP 98
[2022-04-13 04:23] VITALS: BP 156/89; O2SAT 97
--- NOTE | 2022-04-14 14:55 | EKG ---
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
== END 2022-04-12 23:41 | disposition short-term general hospital (02) ==
LOC: ER 17:48
DX: D64.9 Anemia, unspecified (principal); K29.00 Acute gastritis without bleeding; R10.84 Generalized abdominal pain; E66.9 Obesity, unspecified; Z68.41 Body mass index [BMI] 40.0-44.9, adult; Z20.822 Contact with and (suspected) exposure to COVID-19
CPT/HCPCS: 93005; 85025; 80048; 36415; 86900; 83735; 86850; 85610; 86901; 81003; 84484; 83690; 80053; 83880; 74177; 71045; 96372; 99285; U0003; Q9967; J2765; J2550 ×2; C9113; J1170; J7050; J2405; J3490

== ENCOUNTER 2024-05-14 12:48 | Inpatient (IN) | payer BC ==
[2024-05-14] MEDS ORDERED: NA CHLORIDE 0.9% 1,000 ML ONE (13:04)
[2024-05-14 13:13] LABS: Absolute Lymphocytes (CBC) 1.1 K/uL (0.7-4.9); Absolute Monocytes 0.4 K/uL (0.1-1.3); Absolute Neutrophil 8.8 K/uL (1.8-8.0); Basophils % 0.2 % (0-1.3); Eosinophils % 0.1 % (0-4.4); Hematocrit 26.8 % (36.0-45.0); Hemoglobin 8.1 g/dL (12.0-15.0); Lymphocytes % 10.9 % (15.3-44.8); MCH 19.6 pg (27.0-35.0); MCHC 30.2 g/dL (32.0-36.0); MPV 7.2 fL (7.6-11.3); Monocytes % 4.1 % (3.3-12.3); Neutrophils % 84.7 % (41.7-73.7); Nucleated RBC Absolute Count 0.1 (0-0); Nucleated Red Blood Cells % 0.7 % (0-0); Platelets 285 thou/uL (152-406); RBC Red Blood Cell Count 4.12 M/uL (3.86-4.86); Red Cell Distribution Width 20.4 % (12.1-15.2)
[2024-05-14 13:27] LABS: ALT/SGPT 22 U/L (13-56); Albumin 3.5 g/dL (3.4-5.0); Alkaline Phosphatase 80 U/L (45-117); Anion Gap 10.3 mEq/L (5.0-15.0); BUN Blood Urea Nitrogen 11 mg/dL (7-18); Bicarbonate 25 mEq/L (21-32); Bilirubin Total 0.4 mg/dL (0.2-1.0); Globulin 3.5 g/dL (2.3-3.5); Glomerular Filtration Rate 64 ml/min (=/>90); Glucose Level 124 mg/dL (74-106); Lipase 64 U/L (13-75); Magnesium 1.9 mg/dL (1.6-2.4); NT PRO-BNP 327 pg/mL (<125); Potassium 3.3 mEq/L (3.5-5.1); Sodium Level 140 mEq/L (136-145)
[2024-05-14 13:28] LABS: AST/SGOT < 10 U/L (15-37); Bilirubin Direct < 0.2 mg/dL (0-0.2); Bilirubin Indirect, Calculated 0.2 mg/dL (0.2-0.8)
[2024-05-14 13:31] LABS: PT Prothrombin Time 11.7 SECONDS (9.5-12.5); Protime INR 1.07
[2024-05-14 13:38] LABS: Anisocytosis 1+; Blood Morphology Comment NOTED (NOT SEEN); Hypochromasia 2+; Platelet Estimate ADEQ; White Blood Cell Scan OK (OK)
[2024-05-14 13:57] LABS: Specific Gravity > 1.030 (1.005-1.030); Sqamous Epithelial >50 /HPF (None Seen); Urine Bacteria <20 /HPF (<20); Urine Bilirubin NEGATIVE (Negative); Urine Blood Negative (Negative); Urine Clarity Extremely Turbid (Clear); Urine Color Yellow (Yellow); Urine Culture Reflex Order NOT NEEDED; Urine Glucose NEGATIVE (Negative); Urine Ketones TRACE (Negative); Urine Microscopic Reflex YN ORDER UMIC; Urine Mucus 1+ /HPF (None Seen); Urine Nitrite NEGATIVE (Negative); Urine Protein 1+ (Negative); Urine Urobilinogen Normal (Normal); Urine WBC <5 /HPF (<5); Urine Yeast with Hyphae Trace /HPF (None Seen)
[2024-05-14] MEDS ORDERED: POTASSIUM 25 MEQ EFFERV TAB ONE (14:13)
[2024-05-14] MEDS ORDERED: CEFTRIAXONE 1000 MG/VIAL ONE (14:13)
--- NOTE | 2024-05-14 14:30 | RAD REPORT ---
EXAM DESCRIPTION: US - Extrem Venous W Compress Josh - 05/14/2024 1:31 pm CLINICAL HISTORY: Pain and swelling COMPARISON: None. TECHNIQUE: Real-time sonographic evaluation of the bilateral lower extremity deep venous systems was performed. FINDINGS: Normal compressibility, flow augmentation, phasic flow and spontaneous flow is identified in both the left and right lower extremity deep venous systems. No intraluminal filling defects seen. IMPRESSION: No DVT in either lower extremity.
--- NOTE | 2024-05-14 14:33 | RAD REPORT ---
EXAM DESCRIPTION: [facility]14/2024 1:41 pm CLINICAL HISTORY: CHEST PAIN COMPARISON: Chest Single View dated 04/12/2022; Chest Single View dated 03/13/2022 TECHNIQUE: Portable AP view of the chest. FINDINGS: The lungs are clear. No pneumothorax or effusion. The cardiomediastinal contours are unre markable. IMPRESSION: No acute cardiopulmonary process.
[2024-05-14] MEDS ORDERED: PROMETHAZINE INJ 25 MG/ML AMP ONE (14:47)
[2024-05-14] MEDS ORDERED: ONDANSETRON 4 MG/2 ML VIAL ONE (14:47)
[2024-05-14] MEDS ORDERED: MORPHINE 4 MG/ML SYR ONE (14:48)
[2024-05-14] MEDS ORDERED: FAMOTIDINE 20 MG/2 ML VIAL IV ONE (14:48)
[2024-05-14] MEDS ORDERED: NS KCL 20MEQ 1,000 ML IV ONE (14:48)
--- NOTE | 2024-05-14 14:59 | ER ---
Nurse's Notes [facility] Name: Isa Hurst Age: 43 yrs Sex: Female : 1980 Arrival Date: 05/14/2024 Time: 12:48 Bed 7 Private MD: Diagnosis: Chest pain on breathing;Chest pain, unspecified;Vomiting;Anemia, unspecified;Essential (primary) hypertension Presentation: 05/14 12:48 Chief complaint: Patient states: chest pain, fatigue and headache that began 6 days ss ago. Pt seen at [facility] last night and was told that one of her levels was elevated indicating she may have a blood clot, but never received her CT results because their system went down. Coronavirus screen: Client denies travel out of the [place] in the last 14 days. Ebola Screen: Patient denies exposure to infectious person. Patient denies travel to an Ebola-affected area in the 21 days before illness onset. Initial Sepsis Screen: Does the patient meet any 2 criteria? No. Patient's initial sepsis screen is negative. Does the patient have a suspected source of infection? No. Patient's initial sepsis screen is negative. Risk Assessment: Do you want to hurt yourself or someone else? Patient reports no desire to harm self or others. Onset of symptoms was May 08, 2024. 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 - Infectious Disease History:: Denies. - Family history:: not pertinent. - Social history:: Smoking status: Patient denies any tobacco usage or history of. Screenin:03 [facility] ED Fall Risk Assessment (Adult) History of falling in the last 3 months, mb9 including since admission No falls in past 3 months (0 pts) Confusion or Disorientation No (0 pts) Intoxicated or Sedated No (0 pts) Impaired Gait No (0 pts) Mobility Assist Device Used No (0 pt) Altered Elimination No (0 pt) Score/Fall Risk Level 0 - 2 = Low Risk Oriented to surroundings, Maintained a safe environment, Educated pt \T\ family on fall prevention, incl call for assistance when getting out of bed. Abuse screen: Denies threats or abuse. Nutritional screening: No deficits noted. Tuberculosis screening: No symptoms or risk factors identified. Assessment: 13:02 General: Appears in no apparent distress. Behavior is calm, cooperative. Pain: mb9 Complains of pain in chest Pain does not radiate. Pain currently is 8 out of 10 on a pain scale. Quality of pain is described as throbbing, Pain began suddenly. Neuro: Rose Agitation-Sedation Scale (RASS): 0 - Alert and Calm Level of Consciousness is awake, alert, obeys commands, Oriented to person, place, time, situation, Appropriate for age. Neuro: Reports dizziness. Cardiovascular: Reports chest pain, shortness of breath, Heart tones S1 S2 present Patient's skin is warm and dry. Respiratory: Reports shortness of breath Airway is patent Respiratory effort is even, unlabored, Respiratory pattern is regular, symmetrical, Breath sounds are clear bilaterally. GI: Abdomen is round non-distended, Bowel sounds present X 4 quads. Abd is soft and non tender X 4 quads. : No signs and/or symptoms were reported regarding the genitourinary system. EENT: No signs and/or symptoms were reported regarding the EENT system. Derm: Skin is pink, warm \T\ dry. Musculoskeletal: Range of motion: intact in all extremities. 14:05 Reassessment: No changes from previously documented assessment. Patient and/or family mb9 updated on plan of care and expected duration. Pain level reassessed. Patient is alert, oriented x 3, equal unlabored respirations, skin warm/dry/pink. 15:15 Reassessment: No changes from previously documented assessment. Patient and/or family mb9 updated on plan of care and expected duration. Pain level reassessed. Patient is alert, oriented x 3, equal unlabored respirations, skin warm/dry/pink. 16:28 Reassessment: No changes from previously documented assessment. Patient and/or family mb9 updated on plan of care and expected duration. Pain level reassessed. Patient is alert, oriented x 3, equal unlabored respirations, skin warm/dry/pink. Vital Signs: 12:48 BP 156 / 101; Pulse 95; Resp 16; Temp 98.9(TE); Pulse Ox 99% on R/A; Weight 83.91 kg; ss Height 5 ft. 5 in. ; Pain 6/10; 14:58 BP 156 / 90; Pulse 78; Resp 18; Pulse Ox 100% on R/A; mb9 16:28 BP 145 / 84; Pulse 74; Resp 18; Pulse Ox 100% on R/A; mb9 12:48 Body Mass Index 30.79 (83.91 kg, 165.1 cm) 12:48 Pain Scale: Adult ss ED Course: 12:52 Patient arrived in ED. mg5 12:52 Almita Malcolm, RN is Primary Nurse. mb9 12:53 Les Camacho MD is Attending Physician. fred 13:01 Initial lab(s) drawn, by az, sent to lab. EKG done, by ED staff, reviewed by Les Camacho MD. Inserted saline lock: 20 gauge in right antecubital area, using aseptic technique. 13:03 Placed in gown. Bed in low position. Call light in reach. Side rails up X 1. Provided darwin Education on: press call light if needing anything. Client placed on continuous cardiac and pulse oximetry monitoring. NIBP monitoring applied. athletic monitor on. Door closed. Noise minimized. Warm blanket given. 13:17 Triage completed. ss 13:17 Arm band placed on right wrist. ss 13:33 US Extremity Venous W Compression Josh In Process Unspecified. EDMS 13:43 XRAY Chest (1 view) In Process Unspecified. EDMS 14:58 Mateo Barrera is Hospitalizing Provider. fred 14:58 No provider procedures requiring assistance completed. mb9 15:55 Patient admitted, IV remains in place. mb9 Administered Medications: 12:59 CANCELLED (Duplicate Order): ns 0.9% 500 ml IV at bolus once fred 13:10 Drug: NS 0.9% IV 1000 ml IV at 1 bolus Per protocol; 1000 mL bolus Route: IV; Rate: 1 mb9 bolus; Site: right antecubital; 14:59 Follow up: Response: No adverse reaction; IV Status: Completed infusion mb9 14:18 Drug: Rocephin IV 1 grams IV at per protocol once; Given slow IV push per pharmacy mb9 instructions Route: IV; Rate: per protocol; Site: right antecubital; 16:29 Follow up: Response: No adverse reaction; IV Status: Completed infusion mb9 14:18 Drug: Potassium PO Effervescent Tablet 25 mEq PO once; dissolve in 4 ounces of water or mb9 juice Route: PO; 15:00 Follow up: Response: No adverse reaction mb9 14:45 Not Given (Duplicate Order): [id number] mg IVP once fred 14:45 Not Given (Duplicate Order): [id number] mg IVP once fred 14:50 Drug: Ondansetron IVP 4 mg IVP once; over 2 minutes Route: IVP; Site: right antecubital;mb9 15:37 Follow up: Response: No adverse reaction mb9 14:55 Drug: Promethazine IVP 12.5 mg IVP once Route: IVP; Site: right antecubital; mb9 15:37 Follow up: Response: No adverse reaction mb9 14:56 Drug: morphine IVP or IV 4 mg IVP once over 4 mins Route: IVP; Infused Over: 4 mins; mb9 Site: right antecubital; 15:37 Follow up: Response: No adverse reaction mb9 14:59 Drug: Famotidine IVP 40 mg IVP once; dilute with 10 mL 0.9% NaCl; give over 2 minutes mb9 Route: IVP; Site: right antecubital; 15:37 Follow up: Response: No adverse reaction mb9 14:59 Drug: NS 0.9% with KCl IV 20 mEq/L 1000 ml IV at 125 ml/hr continuous Route: IV; Rate: mb9 125 ml/hr; Site: right antecubital; 15:37 Follow up: Response: No adverse reaction; IV Status: Infusion continued upon admission mb9 15:01 Not Given (Duplicate Order): [id number] mg IV at per protocol once over 2 mins fred 15:07 Drug: Labetalol PO 100 mg PO once Route: PO; mb9 15:37 Follow up: Response: No adverse reaction mb9 15:07 Drug: Labetalol IV 10 mg IV at per protocol once Route: IV; Rate: per protocol; Site: mb9 right antecubital; 15:37 Follow up: Response: No adverse reaction; IV Status: Completed infusion mb9 15:37 Not Given (Hemodynamic Parameters): [id number] mg IV at per protocol once mb9 Medication: 13:38 VIS not applicable for this client. mb9 Outcome: 14:59 Decision to Hospitalize by Provider. fred 16:29 Admitted to Med/surg accompanied by tech, via wheelchair, room 207, mb9 16:29 Condition: stable 16:29 Instructed on the need for admit, 16:31 Patient left the ED. mb9 Signatures: Dispatcher [employer] EDMS Les Camacho MD MD cha Blanchard, Shelby RN RN Almita Kirby RN RN mbMilka English 5
--- NOTE | 2024-05-14 15:00 | EDPHYS ---
Physician Documentation [facility] Name: Isa Hurst Age: 43 yrs Sex: Female : 1980 Arrival Date: 05/14/2024 Time: 12:48 Bed 7 Private MD: DARCIE Physician Les Camacho HPI: 05/14 14:46 This 43 yrs old Female presents to ER via Ambulatory with complaints of Chest fred Pain, Abnormal Lab Results. 14:46 The patient or guardian reports chest pain that is located primarily in the substernal fred area, anterior chest wall. Onset: 2 day(s) ago. The pain does not radiate. Associated signs and symptoms: Pertinent positives: shortness of breath. The chest pain is described as a pressure. Modifying factors: The symptoms are alleviated by nothing. the symptoms are aggravated by nothing. Severity of pain: At its worst the pain was moderate in the emergency department the pain is unchanged. The patient has experienced similar episodes in the past, a few times. 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 - Infectious Disease History:: Denies. - Family history:: not pertinent. - Social history:: Smoking status: Patient denies any tobacco usage or history of. ROS: 14:46 Constitutional: Negative for fever, chills, and weight loss, Eyes: Negative for injury, fred pain, redness, and discharge, ENT: Negative for injury, pain, and discharge, Neck: Negative for injury, pain, and swelling, Abdomen/GI: Negative for abdominal pain, nausea, vomiting, diarrhea, and constipation, Back: Negative for injury and pain, : Negative for injury, bleeding, discharge, and swelling, MS/Extremity: Negative for injury and deformity, Skin: Negative for injury, rash, and discoloration, Neuro: Negative for headache, weakness, numbness, tingling, and seizure, Psych: Negative for depression, anxiety, suicide ideation, homicidal ideation, and hallucinations, Allergy/Immunology: Negative for hives, rash, and allergies, Endocrine: Negative for neck swelling, polydipsia, polyuria, polyphagia, and marked weight changes, Hematologic/Lymphatic: Negative for swollen nodes, abnormal bleeding, and unusual bruising, 14:46 Cardiovascular: Positive for chest pain, of the chest, 14:46 Respiratory: Positive for shortness of breath, at rest. Exam: 14:55 Constitutional: This is a well developed, well nourished patient who is awake, alert, fred and in no acute distress. Head/Face: Normocephalic, atraumatic. Eyes: Pupils equal round and reactive to light, extra-ocular motions intact. Lids and lashes normal. Conjunctiva and sclera are non-icteric and not injected. Cornea within normal limits. Periorbital areas with no swelling, redness, or edema. ENT: Nares patent. No nasal discharge, no septal abnormalities noted. Tympanic membranes are normal and external auditory canals are clear. Oropharynx with no redness, swelling, or masses, exudates, or evidence of obstruction, uvula midline. Mucous membranes moist. Neck: Trachea midline, no thyromegaly or masses palpated, and no cervical lymphadenopathy. Supple, full range of motion without nuchal rigidity, or vertebral point tenderness. No Meningismus. Chest/axilla: Normal chest wall appearance and motion. Nontender with no deformity. No lesions are appreciated. Cardiovascular: Regular rate and rhythm with a normal S1 and S2. No gallops, murmurs, or rubs. Normal PMI, no JVD. No pulse deficits. Respiratory: Lungs have equal breath sounds bilaterally, clear to auscultation and percussion. No rales, rhonchi or wheezes noted. No increased work of breathing, no retractions or nasal flaring. Abdomen/GI: Soft, non-tender, with normal bowel sounds. No distension or tympany. No guarding or rebound. No evidence of tenderness throughout. Back: No spinal tenderness. No costovertebral tenderness. Full range of motion. Skin: Warm, dry with normal turgor. Normal color with no rashes, no lesions, and no evidence of cellulitis. MS/ Extremity: Pulses equal, no cyanosis. Neurovascular intact. Full, normal range of motion. Neuro: Awake and alert, GCS 15, oriented to person, place, time, and situation. Cranial nerves II-XII grossly intact. Motor strength 5/5 in all extremities. Sensory grossly intact. Cerebellar exam normal. Normal gait. Psych: Awake, alert, with orientation to person, place and time. Behavior, mood, and affect are within normal limits. 14:55 ECG was reviewed by the Attending Physician. Vital Signs: 12:48 BP 156 / 101; Pulse 95; Resp 16; Temp 98.9(TE); Pulse Ox 99% on R/A; Weight 83.91 kg; ss Height 5 ft. 5 in. ; Pain 6/10; 14:58 BP 156 / 90; Pulse 78; Resp 18; Pulse Ox 100% on R/A; mb9 16:28 BP 145 / 84; Pulse 74; Resp 18; Pulse Ox 100% on R/A; mb9 12:48 Body Mass Index 30.79 (83.91 kg, 165.1 cm) ss 12:48 Pain Scale: Adult ss MDM: 12:53 Patient medically screened. fred 14:55 Differential diagnosis: abnormal EKG, acute myocardial infarction, acute pericarditis, fred anxiety, coronary artery disease chest wall pain, costochondritis, esophagitis, hiatal hernia, pancreatitis, peptic ulcer disease, pericarditis, pleurisy, pneumonia, pneumothorax, pulmonary embolus, stable angina, thoracic aortic disection, unstable angina. HEART Score: History: Moderately Suspicious (1), ECG: Non specific repolarization disturbance / LBTB / PM (1), Age: < or = 45 years (0), Risk Factors: 1 or 2 risk factors (1), [+ Family HX] [Obesity] Troponin: < or = 1 x Normal Limit (0). The patient was given aspirin in the Emergency Department. LUPIS Risk Score: TOTAL SCORE = 0. Data reviewed: vital signs, nurses notes, lab test result(s), EKG, radiologic studies, CT scan, plain films. Consideration of Admission/Observation Patient was admitted/placed on observation. Escalation of care including admission/observation considered. I considered the following discharge prescriptions or medication management in the emergency department Medications were administered in the Emergency Department. See MAR. Independent interpretation of the following test(s) in the Emergency Department EKG: See my EKG interpretation above. Test considered but Not performed: Ultrasound no 2 d echo. 05/14 12:55 Order name: Basic Metabolic Panel; Complete Time: 13:59 [facility] 05/14 12:55 Order name: CBC with Diff; Complete Time: 13:59 [facility] 05/14 12:55 Order name: LFT's; Complete Time: 13:59 [facility] 05/14 12:55 Order name: Magnesium; Complete Time: 13:59 [facility] 05/14 12:55 Order name: NT PRO-BNP; Complete Time: 13:59 [facility] 05/14 12:55 Order name: PT-INR; Complete Time: 13:59 [facility] 05/14 12:55 Order name: Troponin HS; Complete Time: 13:59 [facility] 05/14 12:55 Order name: Lipase; Complete Time: 13:59 [facility] 05/14 12:55 Order name: Urinalysis w/ reflexes; Complete Time: 13:59 [facility] 05/14 13:00 Order name: TSH; Complete Time: 13:59 [facility] 05/14 13:24 Order name: CBC Smear Scan; Complete Time: 13:59 [facility] 05/14 14:00 Order name: Urine Culture [facility] 05/14 16:06 Order name: T4 Free EDMS 05/14 16:06 Order name: Thyroid Stimulating Hormone EDMS 05/14 16:06 Order name: Basic Metabolic Panel EDND 05/14 16:06 Order name: Basic Metabolic Panel EDMS 05/14 16:06 Order name: CBC with Automated Diff EDMS 05/14 16:06 Order name: CBC with Automated Diff EDMS 05/14 16:06 Order name: Hemoglobin A1c EDMS 05/14 16:06 Order name: Hemoglobin A1c EDMS 05/14 16:06 Order name: Lipid Profile EDMS 05/14 16:06 Order name: Lipid Profile EDMS 05/14 16:06 Order name: Magnesium EDMS 05/14 16:06 Order name: Magnesium EDMS 05/14 16:06 Order name: Phosphorus EDMS 05/14 16:06 Order name: Phosphorus EDMS 05/14 16:06 Order name: Troponin High Sensitivity EDMS 05/14 16:06 Order name: Troponin High Sensitivity EDMS 05/14 16:06 Order name: Troponin High Sensitivity EDMS 05/14 12:55 Order name: XRAY Chest (1 view); Complete Time: 14:43 [facility] 05/14 12:59 Order name: US Extremity Venous W Compression Josh; Complete Time: 14:43 [facility] 05/14 16:06 Order name: Echo with Doppler EDMS 05/14 16:06 Order name: Echo with Doppler EDMS 05/14 12:55 Order name: EKG; Complete Time: 12:56 [facility] 05/14 12:55 Order name: Cardiac monitoring; Complete Time: 13:01 [facility] 05/14 12:55 Order name: EKG - Nurse/Tech; Complete Time: 13:01 [facility] 05/14 12:55 Order name: IV Saline Lock; Complete Time: 13: [facility] 05/14 12:55 Order name: Labs collected and sent; Complete Time: 13: [facility] 05/14 12:55 Order name: O2 Per Protocol; Complete Time: 13: [facility] 05/14 12:55 Order name: O2 Sat Monitoring; Complete Time: 13: [facility] EC:55 Rate is 86 beats/min. Rhythm is regular. QRS Talpa is Normal. MO interval is normal. QRS fred interval is normal. QT interval is normal. No Q waves. T waves are Normal. No ST changes noted. Clinical impression: Normal ECG and No evidence of ischemia. Interpreted by me. Reviewed by me. Administered Medications: 12:59 CANCELLED (Duplicate Order): ns 0.9% 500 ml IV at bolus once [facility] 13:10 Drug: NS 0.9% IV 1000 ml IV at 1 bolus Per protocol; 1000 mL bolus Route: IV; Rate: 1 mb9 bolus; Site: right antecubital; 14:59 Follow up: Response: No adverse reaction; IV Status: Completed infusion mb9 14:18 Drug: Rocephin IV 1 grams IV at per protocol once; Given slow IV push per pharmacy mb9 instructions Route: IV; Rate: per protocol; Site: right antecubital; 16:29 Follow up: Response: No adverse reaction; IV Status: Completed infusion mb9 14:18 Drug: Potassium PO Effervescent Tablet 25 mEq PO once; dissolve in 4 ounces of water or mb9 juice Route: PO; 15:00 Follow up: Response: No adverse reaction mb9 14:45 Not Given (Duplicate Order): [id number] mg IVP once [facility] 14:45 Not Given (Duplicate Order): [id number] mg IVP once [facility] 14:50 Drug: Ondansetron IVP 4 mg IVP once; over 2 minutes Route: IVP; Site: right antecubital;mb9 15:37 Follow up: Response: No adverse reaction mb9 14:55 Drug: Promethazine IVP 12.5 mg IVP once Route: IVP; Site: right antecubital; mb9 15:37 Follow up: Response: No adverse reaction mb9 14:56 Drug: morphine IVP or IV 4 mg IVP once over 4 mins Route: IVP; Infused Over: 4 mins; mb9 Site: right antecubital; 15:37 Follow up: Response: No adverse reaction mb9 14:59 Drug: Famotidine IVP 40 mg IVP once; dilute with 10 mL 0.9% NaCl; give over 2 minutes mb9 Route: IVP; Site: right antecubital; 15:37 Follow up: Response: No adverse reaction mb9 14:59 Drug: NS 0.9% with KCl IV 20 mEq/L 1000 ml IV at 125 ml/hr continuous Route: IV; Rate: mb9 125 ml/hr; Site: right antecubital; 15:37 Follow up: Response: No adverse reaction; IV Status: Infusion continued upon admission mb9 15:01 Not Given (Duplicate Order): mg IV at per protocol once over 2 mins fred 15:07 Drug: Labetalol PO 100 mg PO once Route: PO; mb9 15:37 Follow up: Response: No adverse reaction mb9 15:07 Drug: Labetalol IV 10 mg IV at per protocol once Route: IV; Rate: per protocol; Site: mb9 right antecubital; 15:37 Follow up: Response: No adverse reaction; IV Status: Completed infusion mb9 15:37 Not Given (Hemodynamic Parameters): [id number] mg IV at per protocol once mb9 Disposition Summary: 05/14/24 14:59 Hospitalization Ordered Notes: Hospitalization Status: Observation fred Provider: Mateo Barrera cha Location: Telemetry/MedSurg (observation) fred Condition: Fair fred Problem: new fred Symptoms: have improved fred Bed/Room Type: Standard fred Room Assignment: 207(05/14/24 15:34) bc6 Diagnosis - Chest pain on breathing fred - Chest pain, unspecified fred - Vomiting fred - Anemia, unspecified fred - Essential (primary) hypertension fred Forms: - Medication Reconciliation Form fred - SBAR form fred - Leadership Thank You Letter [facility] Signatures: Dispatcher [employer] EDMS Les Camacho MD MD cha Blanchard, Shelby RN RN Almita Malcolm RN RN mb9 Nellie Arreaga [facility] Corrections: (The following items were deleted from the chart) 12:59 12:55 NS 0.9% IV 500 ml IV at bolus once ordered. fred [facility] 13:15 12:59 Chest For PE Angio+CT.RAD.BRZ ordered. EDND EDMS 15:34 14:59 [place] [id number]
[2024-05-14] MEDS ORDERED: LABETALOL HCL 100 MG TAB ONE (15:02)
[2024-05-14] MEDS ORDERED: LABETALOL 20 MG/4ML SYRINGE IV ONE (15:02)
--- NOTE | 2024-05-14 15:15 | P.HP ---
Certification for Inpatient Patient admitted to: Observation With expected LOS: <2 Midnights Patient will require the following post-hospital care: None Practitioner: I am a practitioner with admitting privileges, knowledge of patient current condition, hospital course, and medical plan of care. Services: Services provided to patient in accordance with Admission requirements found in Title 42 Section 412.3 of the Code of Federal Regulations Patient History Date of Service: 05/14/24 Reason for admission: Chest pain rule out History of Present Illness: Isa Hurst is a 43-year-old female with past medical history of chronic painfibromyalgia, asthma, PTSD, iron deficiency anemia who presents to the ED with chief complaint of chest pain, fatigue, feeling winded, headache. She reports going to the ED at [facility] in [place] yesterday and her D-dimer was greater than 500. They performed a CTA chest showing no PE but showing a 4.5 cm ascending aortic aneurysm. She reports being discharged from the ED and went to her PCP this morning who sent her to our emergency room. While in the ED ultrasound bilateral lower extremities was performed showing no DVT. Troponin and EKG negative. Hypokalemic with replacement in the ED. Ultrasound bilateral lower extremity reports No DVT in either lower extremity Chest pain reports "The lungs are clear. No pneumothorax or effusion. The cardiomediastinal contours are unremarkable. IMPRESSION: No acute cardiopulmonary process." Isa will be admitted to hospitalist service for further evaluation and treatment, cardiology has been consulted. Allergies azithromycin Allergy (Verified 05/14/24 16:45) Shortness of breath Penicillins Allergy (Verified 05/14/24 16:45) Anaphylaxis Home Medications: Albuterol Sulfate [Proair Hfa] 8.5 gm IH PRN PRN 05/14/24 Gabapentin 600 mg PO TID 05/14/24 methocarbamoL [Methocarbamol] 750 mg PO Q8HR 05/14/24 - Past Medical/Surgical History -: Asthma -: Chronic painfibromyalgia -: PTSD -: Iron deficiency anemia - Family History Father -: Heart disease Notes: Grandpa MT. Uncle MT. Grandmother MT - Social History Smoking Status: Never smoker Alcohol use: No CD- Drugs: No Review of Systems General: Weakness, Other (fatigue) Respiratory: Other (winded) Gastrointestinal: Nausea, Vomiting Physical Examination - Physical Exam General: Alert, In no apparent distress, Oriented x3 HEENT: Atraumatic, Normocephalic, PERRLA Neck: Supple, 2+ carotid pulse no bruit Respiratory: Clear to auscultation bilaterally, Normal air movement Cardiovascular: Normal pulses, Regular rate/rhythm, Normal S1 S2 Capillary refill: <2 Seconds Gastrointestinal: Normal bowel sounds, Hypoactive, Soft and benign, Distended (obese) Musculoskeletal: No clubbing Integumentary: No rashes Neurological: Normal speech, Normal tone - Studies Laboratory Data (last 24 hrs) 05/14/24 05/14/24 05/14/24 13:00 13:00 13:00 WBC 10.40 Hgb 8.1 L Hct 26.8 L Plt Count 285 PT 11.7 INR 1.07 Sodium 140 Potassium 3.3 L BUN 11 Creatinine 1.09 H Glucose 124 H Magnesium 1.9 Total Bilirubin 0.4 AST < 10 L ALT 22 Alkaline Phosphatase 80 Lipase 64 Assessment and Plan - Plan Assessment and plan Chest pain rule out 4.5 cm ascending aortic aneurysm - EKG: No obvious ST segment changes - troponin 4.0, serial pending - Ordered transthoracic echocardiogram - chest x-ray reports ": No acute cardiopulmonary process" - D-dimer >500 at either side hospital - Consult Cardiology - recommendations appreciated - S/P aspirin 324 mg PO x 1 in ED - Start daily baby aspirin and statin - Symptom control with PRN acetaminophen, nitroglycerin, morphine -continuous telemetry -TSH/FreeT4, A1C, lipid panel pending Hypokalemia Replaced in the ED Monitor and replete as needed Iron deficiency anemia Monitor H&H Continue home medication History of PTSD History of chronic pain/fibromyalgia History of asthma Continue home medication DVT PPx SCDs Full code LOS 24 hours Discharge Plan: Home Plan to discharge in: 24 Hours - Advance Directives Does patient have a Living Will: No Does patient have a Durable POA for Healthcare: No
[2024-05-14] MEDS ORDERED: NITROGLYCERIN 0.4 MG/TAB SL PRN (15:56)
[2024-05-14 17:00] VITALS: O2SAT 100; BMI 30.7
[2024-05-14] MEDS: NA CHLORIDE 0.9% 1,000 ML IV SCH (17:26)
[2024-05-14] MEDS ORDERED: ALBUTEROL INHALER 200 PUFF/6.7 GM IH PRN (19:32)
[2024-05-14] MEDS: GABAPENTIN 300 MG CAP PO SCH (20:49)
[2024-05-14] MEDS: ATORVASTATIN 40 MG TAB PO SCH (20:50)
[2024-05-14] MEDS: MORPHINE 4 MG/ML SYR IV PRN (20:59)
[2024-05-14 21:26] LABS: Thyroid Stimulating Hormone 2.81 uIU/mL (0.358-3.740)
[2024-05-14] MEDS: DIPHENHYDRAMINE 25 MG TAB/CAP PO PRN (23:26)
[2024-05-15 03:35] LABS: Absolute Basophils 0.1 K/uL (0-0.5); Absolute Eosinophils 0.1 K/uL (0-0.5); Absolute Lymphocytes (CBC) 2.1 K/uL (0.7-4.9); Absolute Monocytes 0.3 K/uL (0.1-1.3); Absolute Neutrophil 3.9 K/uL (1.8-8.0); Eosinophils % 1.2 % (0-4.4); Hematocrit 22.6 % (36.0-45.0); Hemoglobin 6.8 g/dL (12.0-15.0); Lymphocytes % 32.4 % (15.3-44.8); MCH 19.5 pg (27.0-35.0); MPV 7.3 fL (7.6-11.3); Monocytes % 5.1 % (3.3-12.3); Neutrophils % 60.3 % (41.7-73.7); Platelets 244 thou/uL (152-406); RBC Red Blood Cell Count 3.47 M/uL (3.86-4.86); Red Cell Distribution Width 20.3 % (12.1-15.2)
[2024-05-15 03:36] LABS: MCV 65.1 fL (80-100)
[2024-05-15 03:46] LABS: Anion Gap 4.7 mEq/L (5.0-15.0); Magnesium 1.9 mg/dL (1.6-2.4); Phosphorus 3.7 mg/dL (2.5-4.9); Potassium 3.7 mEq/L (3.5-5.1)
[2024-05-15 08:35] LABS: Hematocrit 22.6 % (36.0-45.0); Hemoglobin 6.9 g/dL (12.0-15.0)
[2024-05-15] MEDS ORDERED: NA CHLORIDE 0.9% 250 ML IV SCH (11:00)
[2024-05-15] MEDS: FUROSEMIDE 20 MG/ 2ML VIAL IV ONE (13:00)
[2024-05-15] MEDS: POTASSIUM CL SA 10 MEQ TAB PO ONE (15:51)
--- NOTE | 2024-05-15 18:14 | P.PN ---
Date of Service: 05/15/24 Subjective Feeling well this AM plan for one unit PRBC transfuse, she reports being scheduled for a blood transfusion with Dr. Boland this week. She also states, she does not absorb iron ROS 10 point ROS as noted above, otherwise negative Physical Exam General: Alert and oriented x 3, NAD, conversing well HEENT: Atraumatic, Normocephalic, PERRLA Neck: Supple, 2+ carotid pulse no bruit Respiratory: Clear to auscultation bilaterally, metrical chest wall movement, on room air Cardiovascular: Normal sinus rhythm, Normal S1 S2, no edema Capillary refill: <2 Seconds Gastrointestinal: Normal bowel sounds, Soft and benign on palpation, distended (obese) Musculoskeletal: No clubbing Integumentary: No rashes Neurological: Normal speech, Normal tone Vitals Reviewed Problem list Chest pain rule out 4.5 cm ascending aortic aneurysm Hypokalemia Iron deficiency anemia History of PTSD History of chronic pain/fibromyalgia History of asthma Assessment and plan Chest pain rule out 4.5 cm ascending aortic aneurysm - EKG: No obvious ST segment changes - troponin 4.0/6.0/6.3 -Transthoracic echocardiogram- results pending - chest x-ray reports ": No acute cardiopulmonary process" - D-dimer >500 at outside hospital - Consult Cardiology - recommendations appreciated - S/P aspirin 324 mg PO x 1 in ED - Start daily baby aspirin and statin - Symptom control with PRN acetaminophen, nitroglycerin, morphine -continuous telemetry -TSH/FreeT4, A1C, lipid panel - unremarkable Hypokalemia -Replaced in the ED -Monitor and replete as needed Iron deficiency anemia -Monitor H&H -initial H/H 8.1/26.8, (05/15) 6.8/22.6 -One unit PRBC -Followed by Dr. Boland outpatient -Reports she does not absorb iron supplements History of PTSD History of chronic pain/fibromyalgia History of asthma -Continue home medication DVT PPx SCDs Full code LOS 24 hours Discharge Plan: Home Plan to discharge in: 24 Hours
--- NOTE | 2024-05-15 19:29 | CON ---
Date of Consultation: 05/15/2024 Reason For Consultation: Chest pain. History Of Present Illness: This is a 43-year-old female with a past medical history of fibromyalgia , asthma, iron deficiency anemia, posttraumatic stress disorder, presented with chest pain, left-side d, along with generalized weakness and headache. She went to [facility] in [place] yesterday, had a D-dimer that was above 500. CT scan of the chest was done to rule out PE, found to have 4.5 cm asc ending aortic aneurysm. No history of aneurysms before and she had an echo without sphere and aortic valve appears to be normal. The chest pain seems to be retrosternal. No radiation. Does not worse n with activities and it is reproducible for the most part. Past Medical History: As outlined above in the HPI. Medications: Refer reconciliation sheet for detailed list. Allergies: AZITHROMYCIN AND PENICILLIN. Past Surgical History: None. Family History: No premature coronary artery disease or cancer. Social History: She does not smoke or drink. Does not use any drugs. Review of Systems: All systems reviewed, they were negative except as mentioned in the HPI. Physical Examination: Vital Signs: Reviewed. Head and Neck: Pupils are equal, reactive to light. Intact eye movements. No JVD. No cervical lym phadenopathy. Neck: Supple. Thyroid is not enlarged. Lungs: Clear to auscultation bilaterally. No rhonchi, wheezing, or crackles. No accessory muscle u se. Heart: Regular rate and rhythm. No extra sounds. Abdomen: Soft, nontender. Bowel sounds positive. No organomegaly. No masses or hernia. No rigidi ty or rebound. Extremities: No edema, clubbing, cyanosis. Intact pulses. Skin: No rash. No nodule. Neurologic: Alert, awake, oriented x3. No acute focal deficits appreciated. Lymph Nodes: No cervical or axillary lymphadenopathy. Investigations: Her troponins x3 are negative. BUN is 11, creatinine 0.91, and hemoglobin is 6.9. Assessment/recommendation: 1.Chest pain. Cardiac enzymes are negative. We will plan for outpatient stress test. Pain is not very typical. 2.Thoracic aortic aneurysm 4.5 cm, this needs close monitoring. Plan for outpatient followup on her and at that time, we will plan to obtain a CT angiogram of the entire aorta. 3.Hypertension. Blood pressure now is controlled. I recommend beta-harper for her blood pressure control to get her heart rate down as she has an aneurysm. 4.Dyslipidemia. Continue with Lipitor 40 mg. 5.Iron deficiency anemia. She needs transfusion and recommend workup for anemia with EGD and colono scopy. I will follow the patient with you while she is in the hospital and as an outpatient as well. Thank you for the consult. SLOANE Voice ID: [id number] Report ID: [id number]
[2024-05-15 20:43] LABS: Hematocrit 27.9 % (36.0-45.0); Hemoglobin 8.6 g/dL (12.0-15.0)
[2024-05-15] MEDS: ACETAMINOPHEN 500 MG TAB PO PRN (21:00)
[2024-05-15] MEDS: DIPHENHYDRAMINE 50 MG/ML VIAL IV PRN (22:09)
[2024-05-16 04:14] LABS: Anion Gap 7.6 mEq/L (5.0-15.0); Potassium 3.6 mEq/L (3.5-5.1)
[2024-05-16 08:26] VITALS: BP 168/70; TEMP 97.1
--- NOTE | 2024-05-16 09:16 | P.DS ---
Admission Date: 05/16/24 Discharge Date: 05/17/24 Disposition: ROUTINE DISCHARGE Discharge Condition: GOOD Reason for Admission: Chest pain rule out Brief History of Present Illness: Diagnosis Chest pain rule out 4.5 cm ascending aortic aneurysm Hypokalemia Iron deficiency anemia History of PTSD History of chronic pain/fibromyalgia History of asthma HPI 05/14/24 Isa Hurst is a 43-year-old female with past medical history of chronic painfibromyalgia, asthma, PTSD, iron deficiency anemia who presents to the ED with chief complaint of chest pain, fatigue, feeling winded, headache. She reports going to the ED at [facility] in [place] yesterday and her D-dimer was greater than 500. They performed a CTA chest showing no PE but showing a 4.5 cm ascending aortic aneurysm. She reports being discharged from the ED and went to her PCP this morning who sent her to our emergency room. While in the ED ultrasound bilateral lower extremities was performed showing no DVT. Troponin and EKG negative. Hypokalemic with replacement in the ED. Ultrasound bilateral lower extremity reports No DVT in either lower extremity Chest pain reports "The lungs are clear. No pneumothorax or effusion. The cardiomediastinal contours are unremarkable. IMPRESSION: No acute cardiopulmonary process." Isa will be admitted to hospitalist service for further evaluation and treatment, cardiology has been consulted. Hospital Course: Isa Hurst is a pleasant 43-year-old female with a past medical history significant for fibromyalgia, asthma, PTSD, iron deficiency anemia who was admitted to the [facility] on 05/14/2024 for chest pain, fatigue, feeling winded, and headache. Isa Hurst presented to the ED with chief complaint of chest pain. During this admission an aortic aneurysm was noted and cardiology was consulted. significant anemia was also noted and one uint of blood was transfused which was tolerated well. HGB increased to >8. Dr. Koch requested an outpatient stress test and continued close monitoring of the ascending aortic aneurysm measring 4.5 cm. He has also recommended taking a beta harper to optimize your heart rate with this new found aneurysm. Tolerating p.o. diet, and ambulating independently without dizziness, strength is returned, chest pain has resolved, and hemodynamically stable for discharge. On 05/16/2024, Isa was seen on morning rounds and deemed medically stable for discharge. Isa was discharged with instructions to schedule follow-up appointments with PCP and Dr. Garcia. Isa was provided prescriptions for Coreg and Lipitor. The patient and family members were given the opportunity to ask questions and reported no further questions. Furthermore, all questions were answered to the best of my ability. A copy of this discharge summary will be sent to the above providers to facilitate continuity of care. Physical Exam General: Alert and oriented x 3, NAD, conversing well HEENT: Atraumatic, Normocephalic, PERRLA Neck: Supple, 2+ carotid pulse no bruit Respiratory: Clear to auscultation bilaterally, symmetrical chest wall movement, on room air Cardiovascular: Normal sinus rhythm, Normal S1 S2, no edema Capillary refill: <2 Seconds Gastrointestinal: Normal bowel sounds, Soft and benign on palpation, distended (obese) Musculoskeletal: No clubbing Integumentary: No rashes Neurological: Normal speech, Normal tone Vital Signs/Physical Exam: Temp Pulse Resp BP Pulse Ox 97.1 F 75 16 168/70 H 98 05/16/24 08:00 05/16/24 08:00 05/16/24 08:00 05/16/24 08:00 05/16/24 08:00 Laboratory Data at Discharge: WBC 6.40 thou/uL (4.3-10.9) 05/15/24 03:04 Hgb 8.6 g/dL (12.0-15.0) L D 05/15/24 20:28 Hct 27.9 % (36.0-45.0) L 05/15/24 20:28 Plt Count 244 thou/uL (152-406) 05/15/24 03:04 PT 11.7 SECONDS (9.5-12.5) 05/14/24 13:00 INR 1.07 05/14/24 13:00 Sodium 137 mEq/L (136-145) 05/16/24 03:00 Potassium 3.6 mEq/L (3.5-5.1) 05/16/24 03:00 BUN 10 mg/dL (7-18) 05/16/24 03:00 Creatinine 0.88 mg/dL (0.55-1.02) 05/16/24 03:00 Glucose 90 mg/dL (74-106) 05/16/24 03:00 Phosphorus 3.7 mg/dL (2.5-4.9) 05/15/24 03:04 Magnesium 1.9 mg/dL (1.6-2.4) 05/15/24 03:04 Total Bilirubin 0.4 mg/dL (0.2-1.0) 05/14/24 13:00 AST < 10 U/L (15-37) L 05/14/24 13:00 ALT 22 U/L (13-56) 05/14/24 13:00 Alkaline Phosphatase 80 U/L (45-117) 05/14/24 13:00 Triglycerides 71 mg/dL (<150) 05/15/24 03:04 Cholesterol 166 mg/dL (<200) 05/15/24 03:04 HDL Cholesterol 60 mg/dL (40-60) 05/15/24 03:04 Cholesterol/HDL Ratio 2.77 05/15/24 03:04 Lipase 64 U/L (13-75) 05/14/24 13:00 Home Medications: Albuterol Sulfate [Proair Hfa] 8.5 gm IH PRN PRN 05/14/24 Gabapentin 600 mg PO TID 05/14/24 methocarbamoL [Methocarbamol] 750 mg PO Q8HR 05/14/24 Atorvastatin Calcium [Lipitor] 40 mg PO BEDTIME 30 Days #30 tab 05/16/24 Atorvastatin Calcium [Lipitor] 40 mg PO DAILY 30 Days #30 tab 05/16/24 Carvedilol [Coreg] 3.125 mg PO DAILY 30 Days #30 tab 05/16/24 Carvedilol [Coreg] 3.125 mg PO DAILY 30 Days #30 tab 05/16/24 Ibuprofen/Pseudoephedrine HCl [Advil Cold & Sinus Caplet] 1 each PO BID 20 Days #1 box 05/16/24 Ibuprofen/Pseudoephedrine HCl [Advil Cold-Sinus Liqui-Gels] 1 each PO BID 10 Days #1 box 05/16/24 New Medications: Ibuprofen/Pseudoephedrine HCl [Advil Cold & Sinus Caplet] 1 each PO BID 20 Days #1 box Ibuprofen/Pseudoephedrine HCl [Advil Cold-Sinus Liqui-Gels] 1 each PO BID 10 Days #1 box Carvedilol [Coreg] 3.125 mg PO DAILY 30 Days #30 tab Carvedilol [Coreg] 3.125 mg PO DAILY 30 Days #30 tab Atorvastatin Calcium [Lipitor] 40 mg PO DAILY 30 Days #30 tab Atorvastatin Calcium [Lipitor] 40 mg PO BEDTIME 30 Days #30 tab Physician Discharge Instructions: PROBLEM: Chest pain GOAL: Clear understanding of disease process INSTRUCTIONS: Isa Hurst presented to the ED with chief complaint of chest pain. During this admission an aortic aneurysm was noted and cardiology was consulted. significant anemia was also noted and one unit of blood was transfused which was tolerated well. HGB increased to >8. Dr. Koch requested an outpatient stress test and continued close monitoring of the ascending aortic aneurysm measuring 4.5cm. He has also recommended taking a beta harper to optimize your heart rate with this new found aneurysm. 1. Please call and schedule a follow-up appointment with your PCP in 3-5 days - Please follow-up with your PCP for medication refills/adjustments 2. Please call and schedule a follow-up appointment with Dr. Koch in 3-5 days -outpatient stress test and close monitoring of the aortic aneurysm 3. Continue heart healthy diet 4. No activity restrictions 5. Return to the ED if symptoms worsen New medications Coreg 3.125 mg p.o. daily Lipitor 40 mg p.o. daily Advil Sinus Followup: Tone Newberry MD [Primary Care Provider] - Aldair Koch MD [ACTIVE - CAN ADMIT] -
--- NOTE | 2024-05-18 08:15 | ECHO ---
HEIGHT: 5 ft 5 in WEIGHT: 185 lb 0 oz DATE OF STUDY: 05/15/[address]: Jeannie Delcid NP 2-DIMENSIONAL: YES M.MODE: YES DOPPLER: YES COLOR FLOW: YES TDS: PORTABLE: DEFINITY: BUBBLE STUDY: DIAGNOSIS: CHEST PAIN CARDIAC HISTORY: CATHERIZATION: SURGERY: PROSTHETIC VALVE: PACEMAKER: MEASUREMENTS (cm) DIASTOLIC (NORMALS) SYSTOLIC (NORMALS) IVSd 0.9 (0.6-1.2) LA Diam 3.7 (1.9-4.0) LVEF 60-65% LVIDd 4.1 (3.5-5.7) LVIDs 2.7 (2.0-3.5) %FS 34% LVPWd 1.2 (0.6-1.2) Ao Diam 2.7 (2.0-3.7) 2 DIMENSIONAL ASSESSMENT: RIGHT ATRIUM: NORMAL LEFT ATRIUM: NORMAL RIGHT VENTRICLE: NORMAL LEFT VENTRICLE: NORMAL TRICUSPID VALVE: MILD TRICUSPID REGURGITATION MITRAL VALVE: MILD MITRAL REGURGITATION PULMONIC VALVE: MILD PULMONIC INSUFFICIENCY AORTIC VALVE: NORMAL PERICARDIAL EFFUSION: TRIVIAL AORTIC ROOT: NORMAL LEFT VENTRICULAR WALL MOTION: NORMAL DOPPLER/COLOR FLOW: SEE BELOW COMMENTS: 1. NORMAL LEFT VENTRICULAR EJECTION FRACTION 60-65% WITH NORMAL WALL MOTION 2. NORMAL DIASTOLIC FUNCTION 3. MILD MITRAL REGURGITATION/ TRICUSPID REGURGITATION TECHNOLOGIST: JOSH ASTUDILLO
--- NOTE | 2024-05-18 15:07 | EKG ---
Test Date: 2024-05-14 Test Time: 12:57:55 Hardware Supplies Sales Representative: MB MEASUREMENT RESULTS: Intervals: Rate: 86 AR: 142 QRSD: 82 QT: 370 QTc: 442 Fowler: P: 83 AR: 142 QRS: 73 T: 63 INTERPRETIVE STATEMENTS: Normal sinus rhythm Normal ECG Compared to ECG 04/12/2022 21:13:33 No significant changes Electronically Signed On 05-18-24 14:55:44 CDT by Aldair Koch
== END 2024-05-16 11:19 | disposition home or self-care (01) | DRG 301 ==
LOC: ER 12:48 → ERHOLD 15:56 → 2ND 16:16 → OBSVTOIN 05-16 08:59
PROVIDERS: ADMIT Internal Medicine; ATTEND Internal Medicine
PROC: 30233N1 Transfusion of Nonautologous Red Blood Cells into Peripheral Vein, Percutaneous Approach (ICD-10-PCS; principal; 2024-05-15)
DX: I71.21 Aneurysm of the ascending aorta, without rupture (principal); F43.10 Post-traumatic stress disorder, unspecified; E87.6 Hypokalemia; M79.7 Fibromyalgia; G89.29 Other chronic pain; E78.5 Hyperlipidemia, unspecified; I10 Essential (primary) hypertension; D50.9 Iron deficiency anemia, unspecified; Z88.0 Allergy status to penicillin; Z88.2 Allergy status to sulfonamides; Z88.1 Allergy status to other antibiotic agents; Z98.84 Bariatric surgery status; Z79.02 Long term (current) use of antithrombotics/antiplatelets; Z90.49 Acquired absence of other specified parts of digestive tract; Z90.710 Acquired absence of both cervix and uterus; Z79.899 Other long term (current) drug therapy
CPT/HCPCS: 36415; 36430; 71045; 80048; 80061; 80076; 81001; 83036; 83690; 83735; 83880; 84100; 84439; 84443; 84484; 85014; 85018; 85025; 85610; 86850; 86900; 86901; 86920; 93005; 93306; 93970; 96361; 96365; 96375; 99285; G0378; J0696; J1200; J1940; J2405; J2550; J3480; J7030; P9016

== ENCOUNTER 2024-07-01 13:29 | Observation (INO) | payer BC ==
--- NOTE | 2024-07-01 13:51 | ER ---
Nurse's Notes [facility] Name: Isa Hurst Age: 43 yrs Sex: Female : 1980 Arrival Date: 07/01/2024 Time: 13:29 Bed 3 Private MD: Diagnosis: Chest pain, unspecified;Tachycardia, unspecified Presentation: 07/01 13:40 Chief complaint: Patient states: Doing a stress test at Dr. Pierre office. HR up to ll1 179, BP 180/120. EMS called for transfer to ED. Pain to R chest and shoulder. EMS states: 324 MG aspirin PO given and Zofran 4 MG IV given en route. Coronavirus screen: Client denies travel out of the [place] in the last 14 days. At this time, the client does not indicate any symptoms associated with coronavirus-19. Ebola Screen: Patient denies travel to an Ebola-affected area in the 21 days before illness onset. Initial Sepsis Screen: Does the patient meet any 2 criteria? No. Patient's initial sepsis screen is negative. Does the patient have a suspected source of infection? No. Patient's initial sepsis screen is negative. Risk Assessment: Do you want to hurt yourself or someone else? Patient reports no desire to harm self or others. Onset of symptoms was July 01, 2024. 13:40 Method Of Arrival: EMS ll1 13:40 Acuity: ANGELIQUE 2 ll1 Triage Assessment: 13:40 General: Appears uncomfortable, Behavior is calm, cooperative, appropriate for age. ll1 Pain: Complains of pain in R chest Quality of pain is described as pressure. Cardiovascular: Reports chest pain, palpitations. Historical: - Allergies: 13:43 Azithromycin; ll1 13:43 Iodine; ll1 13:43 PENICILLINS; ll1 13:43 Sulfa (Sulfonamide Antibiotics); ll1 13:43 Erythromycin; ll1 - PMHx: 14:23 Asthma; Chronic pain; Fibromyalgia; IRON DEFICIENCY ANEMIA; PTSD; ph - PSHx: 14:23 ankle SX; back sx; section; Cholecystectomy; Gastric Bypass; Neck sx; Total ph abdominal hysterectomy; - Immunization history:: Adult Immunizations up to date. - Infectious Disease History:: Denies. - Social history:: Smoking status: Patient denies any tobacco usage or history of. - Family history:: not pertinent. Screenin:[facility] ED Fall Risk Assessment (Adult) History of falling in the last 3 months, ph including since admission No falls in past 3 months (0 pts) Confusion or Disorientation No (0 pts) Intoxicated or Sedated No (0 pts) Impaired Gait No (0 pts) Mobility Assist Device Used No (0 pt) Altered Elimination No (0 pt) Score/Fall Risk Level 0 - 2 = Low Risk Oriented to surroundings, Maintained a safe environment, Hourly rounding (assess needs \T\ fall precautionary measures) done. Abuse screen: Denies threats or abuse. Denies injuries from another. Nutritional screening: No deficits noted. Tuberculosis screening: No symptoms or risk factors identified. Assessment: 14:20 General: Appears in no apparent distress. Behavior is calm, cooperative. Pain: ph Complains of pain in chest Pain does not radiate. Pain began 1 hour ago. Neuro: Level of Consciousness is awake, alert, obeys commands, Oriented to person, place, time, situation. Cardiovascular: Reports chest pain, fatigue, lightheadedness, Capillary refill < 3 seconds in bilateral fingers Patient's skin is warm and dry. Respiratory: Airway is patent Respiratory effort is even, unlabored. Derm: Skin is intact, is healthy with good turgor, Skin is pale. Musculoskeletal: Circulation, motion, and sensation intact. Vital Signs: 13:40 BP 137 / 93; Pulse 69; Resp 17; Temp 98; Pulse Ox 100% on R/A; Weight 83.91 kg; Height ll1 5 ft. 5 in. ; Pain 6/10; 13:40 Body Mass Index 30.79 (83.91 kg, 165.1 cm) ll1 13:40 Pain Scale: Adult ll1 ED Course: 13:39 Patient arrived in ED. ll1 13:40 Arm band placed on Patient placed in an exam room, on a stretcher. ll1 13:41 Les Camacho MD is Attending Physician. fred 13:43 Triage completed. ll1 13:50 Jose De Jesus Barrera MD is Hospitalizing Provider. fred 13:52 Yelena Shah RN is Primary Nurse. ph 14:05 Initial lab(s) drawn, by mt, sent to lab. T\T\S collected, blood band applied to patient. ph Inserted saline lock: 22 gauge in right antecubital area, using aseptic technique. Blood collected. Flushed with 10 mL NS. 14:23 Patient has correct armband on for positive identification. Client placed on continuous ph cardiac and pulse oximetry monitoring. NIBP monitoring applied. new vehicle sales consultant on. Door closed. Noise minimized. 14:23 No provider procedures requiring assistance completed. Patient admitted, IV remains in ph place. Patient maintains SpO2 saturation greater than 95% on room air. 14:40 Basic Metabolic Panel Sent. ph 14:40 LFT's Sent. ph 14:40 Magnesium Sent. ph 14:40 NT PRO-BNP Sent. ph 14:40 PT-INR Sent. ph 14:40 Troponin HS Sent. ph 14:40 Type And Screen Sent. ph 14:49 XRAY Chest (1 view) In Process Unspecified. EDMS Administered Medications: 14:38 Not Given (Pt taken to director of cardiac cath lab): ns 0.9% 1000 ml IV at 1 bolus Per protocol; 1000 mL ph bolus 14:38 Not Given (Pt taken to cath labb): [id number] mg IVP once ph 14:39 Not Given (taken to cath labb): [id number] mg IVP once ph 14:39 Not Given (pt taken to cath labb): [id number] mg IVP once; dilute with 10 mL 0.9% ph NaCl; give over 2 minutes Medication: 14:22 VIS not applicable for this client. ph Outcome: 13:50 Decision to Hospitalize by Provider. [facility] 14:10 Admitted to Government Affairs Director accompanied by nurse, ph 14:10 Condition: stable 14:10 Instructed on the need for admit, 15:01 Patient left the ED. ph Signatures: Dispatcher [employer] EDMS Les Camacho MD MD cha Hall, Patricia, RN RN ph Christina Ibrahim RN RN ll1
--- NOTE | 2024-07-01 13:51 | EDPHYS ---
Physician Documentation [facility] Name: Isa Hurst Age: 43 yrs Sex: Female : 1980 Arrival Date: 07/01/2024 Time: 13:29 Bed 3 Private MD: ED Physician Les Camacho HPI: 07/01 13:45 This 43 yrs old Female presents to ER via EMS with complaints of Chest Pain. fred 13:45 The patient or guardian reports chest pain that is located primarily in the substernal fred area, anterior chest wall, bilaterally. Onset: just prior to arrival. The pain does not radiate. Associated signs and symptoms: Pertinent positives: shortness of breath. The chest pain is described as a pressure. Modifying factors: The symptoms are alleviated by remaining still, rest, the symptoms are aggravated by activity, stress test. The patient has experienced similar episodes in the past, several times. Historical: - Allergies: 13:43 Azithromycin; ll1 13:43 Iodine; ll1 13:43 PENICILLINS; ll1 13:43 Sulfa (Sulfonamide Antibiotics); ll1 13:43 Erythromycin; ll1 - PMHx: 14:23 Asthma; Chronic pain; Fibromyalgia; IRON DEFICIENCY ANEMIA; PTSD; ph - PSHx: 14:23 ankle SX; back sx; section; Cholecystectomy; Gastric Bypass; Neck sx; Total ph abdominal hysterectomy; - Immunization history:: Adult Immunizations up to date. - Infectious Disease History:: Denies. - Social history:: Smoking status: Patient denies any tobacco usage or history of. - Family history:: not pertinent. ROS: 13:45 Constitutional: Negative for fever, chills, and weight loss, Eyes: Negative for injury, fred pain, redness, and discharge, ENT: Negative for injury, pain, and discharge, Neck: Negative for injury, pain, and swelling, Respiratory: Negative for shortness of breath, cough, wheezing, and pleuritic chest pain, Abdomen/GI: Negative for abdominal pain, nausea, vomiting, diarrhea, and constipation, Back: Negative for injury and pain, : Negative for injury, bleeding, discharge, and swelling, MS/Extremity: Negative for injury and deformity, Skin: Negative for injury, rash, and discoloration, Neuro: Negative for headache, weakness, numbness, tingling, and seizure, Psych: Negative for depression, anxiety, suicide ideation, homicidal ideation, and hallucinations, Allergy/Immunology: Negative for hives, rash, and allergies, Endocrine: Negative for neck swelling, polydipsia, polyuria, polyphagia, and marked weight changes, Hematologic/Lymphatic: Negative for swollen nodes, abnormal bleeding, and unusual bruising, 13:45 Cardiovascular: Positive for chest pain, of the chest, Exam: 13:45 Constitutional: This is a well developed, well nourished patient who is awake, alert, fred and in no acute distress. Head/Face: Normocephalic, atraumatic. Eyes: Pupils equal round and reactive to light, extra-ocular motions intact. Lids and lashes normal. Conjunctiva and sclera are non-icteric and not injected. Cornea within normal limits. Periorbital areas with no swelling, redness, or edema. ENT: Nares patent. No nasal discharge, no septal abnormalities noted. Tympanic membranes are normal and external auditory canals are clear. Oropharynx with no redness, swelling, or masses, exudates, or evidence of obstruction, uvula midline. Mucous membranes moist. Neck: Trachea midline, no thyromegaly or masses palpated, and no cervical lymphadenopathy. Supple, full range of motion without nuchal rigidity, or vertebral point tenderness. No Meningismus. Chest/axilla: Normal chest wall appearance and motion. Nontender with no deformity. No lesions are appreciated. Cardiovascular: Regular rate and rhythm with a normal S1 and S2. No gallops, murmurs, or rubs. Normal PMI, no JVD. No pulse deficits. Respiratory: Lungs have equal breath sounds bilaterally, clear to auscultation and percussion. No rales, rhonchi or wheezes noted. No increased work of breathing, no retractions or nasal flaring. Abdomen/GI: Soft, non-tender, with normal bowel sounds. No distension or tympany. No guarding or rebound. No evidence of tenderness throughout. Back: No spinal tenderness. No costovertebral tenderness. Full range of motion. Skin: Warm, dry with normal turgor. Normal color with no rashes, no lesions, and no evidence of cellulitis. MS/ Extremity: Pulses equal, no cyanosis. Neurovascular intact. Full, normal range of motion. Neuro: Awake and alert, GCS 15, oriented to person, place, time, and situation. Cranial nerves II-XII grossly intact. Motor strength 5/5 in all extremities. Sensory grossly intact. Cerebellar exam normal. Normal gait. Psych: Awake, alert, with orientation to person, place and time. Behavior, mood, and affect are within normal limits. 13:45 ECG was reviewed by the Attending Physician. Vital Signs: 13:40 BP 137 / 93; Pulse 69; Resp 17; Temp 98; Pulse Ox 100% on R/A; Weight 83.91 kg; Height ll1 5 ft. 5 in. ; Pain 6/10; 13:40 Body Mass Index 30.79 (83.91 kg, 165.1 cm) ll1 13:40 Pain Scale: Adult ll1 MDM: 13:41 Patient medically screened. fred 13:47 HEART Score: History: Moderately Suspicious (1), ECG: Non specific repolarization fred disturbance / LBTB / PM (1), Age: < or = 45 years (0), Risk Factors: > or = 3 Risk factors for atherosclerotic disease (2), [Hypertension] [+ Family HX] [Obesity] Troponin: < or = 1 x Normal Limit (0). The patient was not given aspirin in the Emergency Department. Patient reports taking aspirin within the past 24 hours. LPUIS Risk Score: 1 - Recent [<24hrs] Severe Angina, TOTAL SCORE = 1. Data reviewed: vital signs, nurses notes, lab test result(s), EKG, radiologic studies, plain films. Consideration of Admission/Observation Escalation of care including admission/observation considered. I considered the following discharge prescriptions or medication management in the emergency department Medications were administered in the Emergency Department. See MAR. Independent interpretation of the following test(s) in the Emergency Department EKG: See my EKG interpretation above. Test considered but Not performed: CT: no ct chest per [facility]. 07/01 13:44 Order name: Basic Metabolic Panel 07/01 13:44 Order name: CBC with Diff 07/01 13:44 Order name: LFT's 07/01 13:44 Order name: Magnesium 07/01 13:44 Order name: NT PRO-BNP 07/01 13:44 Order name: PT-INR 07/01 13:44 Order name: Troponin HS 07/01 13:44 Order name: Type And Screen 07/01 13:44 Order name: Urinalysis w/ reflexes [facility] 07/01 14:30 Order name: CBC Smear Scan [facility] 07/01 13:44 Order name: XRAY Chest (1 view) [facility] 07/01 13:44 Order name: Cardiac monitoring; Complete Time: 14:40 [facility] 07/01 13:44 Order name: IV Saline Lock; Complete Time: 14:39 [facility] 07/01 13:44 Order name: Labs collected and sent; Complete Time: 14:39 [facility] 07/01 13:44 Order name: O2 Per Protocol; Complete Time: 14:08 [facility] 07/01 13:44 Order name: O2 Sat Monitoring; Complete Time: 14:08 [facility] Administered Medications: 14:38 Not Given (Pt taken to greens laborer): ns 0.9% 1000 ml IV at 1 bolus Per protocol; 1000 mL ph bolus 14:38 Not Given (Pt taken to cath labb): [id number] mg IVP once ph 14:39 Not Given (taken to cath labb): [id number] mg IVP once ph 14:39 Not Given (pt taken to cath labb): [id number] mg IVP once; dilute with 10 mL 0.9% ph NaCl; give over 2 minutes Disposition Summary: 07/01/24 13:50 Hospitalization Ordered Notes: Hospitalization Status: Observation fred Provider: Jose De Jesus Barrera cha Location: Telemetry/MedSurg (observation) fred Condition: Fair fred Problem: new fred Symptoms: have improved fred Bed/Room Type: Standard [facility] Room Assignment: 203(07/01/24 14:57) ja Diagnosis - Chest pain, unspecified fred - Tachycardia, unspecified fred Forms: - Medication Reconciliation Form fred - SBAR form fred - Leadership Thank You Letter fred Signatures: Dispatcher [employer] EDMS Les Camacho MD MD cha Hall, Patricia RN RN ph Esau Henriquez RN RN ja1 Christina Ibrahim RN RN ll1 Corrections: (The following items were deleted from the chart) 13:45 13:45 Chest Single View+RAD.RAD.BRZ ordered. [facility] EDMS 14:40 13:44 EKG - Nurse/Tech ordered. [facility] ph 14:57 13:50 [facility]
[2024-07-01 14:22] LABS: Absolute Eosinophils 0.1 K/uL (0-0.5); Absolute Lymphocytes (CBC) 0.8 K/uL (0.7-4.9); Absolute Monocytes 0.2 K/uL (0.1-1.3); Absolute Neutrophil 3.8 K/uL (1.8-8.0); Hematocrit 37.4 % (36.0-45.0); Hemoglobin 11.3 g/dL (12.0-15.0); Lymphocytes % 16.6 % (15.3-44.8); MCHC 30.4 g/dL (32.0-36.0); MCV 75.7 fL (80-100); MPV 8.6 fL (7.6-11.3); Neutrophils % 76.4 % (41.7-73.7); Nucleated Red Blood Cells % 0.2 % (0-0); Platelets 244 thou/uL (152-406); RBC Red Blood Cell Count 4.94 M/uL (3.86-4.86)
[2024-07-01] MEDS ORDERED: HEPA 1000U/500MLS 2,000 UNIT/1,000 ML BAG IV ONE (14:23)
[2024-07-01] MEDS ORDERED: MIDAZOLAM HCL 2 MG/2 ML INJ ONE (14:23)
[2024-07-01] MEDS ORDERED: ATROPINE SULF 1 MG/10 ML SYR IV ONE (14:23)
[2024-07-01] MEDS ORDERED: LIDOCAINE 1% 20 ML MDV ONE ×2 (14:23→15:23)
[2024-07-01] MEDS ORDERED: VERAPAMIL HCL 10 MG/4 ML VIAL IV ONE (14:23)
[2024-07-01] MEDS ORDERED: FENTANYL CITR 100 MCG/2 ML ONE (14:24)
[2024-07-01] MEDS ORDERED: CLOPIDOGREL 75 MG TABLET ONE (14:24)
[2024-07-01] MEDS ORDERED: HEPARIN 10,000 UNIT/10 ML VIAL IV ONE (14:24)
[2024-07-01] MEDS ORDERED: ASPIRIN 325 MG TAB ONE (14:24)
[2024-07-01] MEDS ORDERED: TICAGRELOR 90 MG TABLET PO ONE (14:24)
[2024-07-01] MEDS ORDERED: HEPARIN 5000 UNIT/ML 1 ML VIAL ONE (14:24)
[2024-07-01 14:30] LABS: Anisocytosis 3+; Blood Morphology Comment NOTED (NOT SEEN); Platelet Estimate ADEQ; White Blood Cell Scan OK (OK)
[2024-07-01] MEDS: NA CHLORIDE 0.9% 500 ML ONE (14:34)
[2024-07-01 14:41] LABS: PT Prothrombin Time 12.3 SECONDS (9.4-12.5); Protime INR 1.1
[2024-07-01] MEDS ORDERED: FLUMAZENIL 0.1 MG/ML (5 mL VIAL) IV ONE (14:41)
[2024-07-01] MEDS ORDERED: NALOXONE 0.4 MG/ML VIAL ONE (14:41)
[2024-07-01 14:43] LABS: ALT/SGPT 28 U/L (13-56); AST/SGOT 27 U/L (15-37); Albumin/Globulin Ratio 1.3 (1.1-1.8); Alkaline Phosphatase 76 U/L (45-117); Anion Gap 7.7 mEq/L (5.0-15.0); BUN Blood Urea Nitrogen 12 mg/dL (7-18); Bicarbonate 28 mEq/L (21-32); Bilirubin Total 0.5 mg/dL (0.2-1.0); Glomerular Filtration Rate 73 ml/min (=/>90); Glucose Level 91 mg/dL (74-106); NT PRO-BNP 256 pg/mL (<125); Potassium 3.7 mEq/L (3.5-5.1); Sodium Level 139 mEq/L (136-145); Troponin High Sensitivity 3.4 pg/mL (<58.9)
[2024-07-01 14:44] LABS: Bilirubin Direct < 0.2 mg/dL (0-0.2); Bilirubin Indirect, Calculated 0.3 mg/dL (0.2-0.8)
[2024-07-01] MEDS ORDERED: ONDANSETRON 4 MG/2 ML VIAL ONE (15:08)
[2024-07-01] MEDS ORDERED: ONDANSETRON 4 MG/2 ML VIAL IV PRN (15:21)
[2024-07-01] MEDS: ENOXAPARIN 40 MG/0.4 ML SQ SCH (16:00)
--- NOTE | 2024-07-01 16:10 | P.HP ---
Certification for Inpatient Patient admitted to: Observation With expected LOS: <2 Midnights Patient will require the following post-hospital care: None Practitioner: I am a practitioner with admitting privileges, knowledge of patient current condition, hospital course, and medical plan of care. Services: Services provided to patient in accordance with Admission requirements found in Title 42 Section 412.3 of the Code of Federal Regulations Patient History Date of Service: 07/01/24 Reason for admission: Unstable angina History of Present Illness: 43-year-old female with history of iron deficiency anemia, fibromyalgia, asthma presents emergency department chief complaint of chest pain. 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 She was referred to the emergency department for further evaluation. EKG was without STEMI criteria initial high sensitive troponin within normal limits, cardiology was aware of patient and plans for coronary angiogram today. Patient to be brought to [facility]. Allergies azithromycin Allergy (Verified 05/14/24 16:45) Shortness of breath Penicillins Allergy (Verified 05/14/24 16:45) Anaphylaxis Home Medications: Albuterol Sulfate [Proair Hfa] 8.5 gm IH PRN PRN 05/14/24 Gabapentin 600 mg PO TID 05/14/24 methocarbamoL [Methocarbamol] 750 mg PO Q8HR 05/14/24 Atorvastatin Calcium [Lipitor] 40 mg PO BEDTIME 30 Days #30 tab 05/16/24 Atorvastatin Calcium [Lipitor] 40 mg PO DAILY 30 Days #30 tab 05/16/24 Carvedilol [Coreg] 3.125 mg PO DAILY 30 Days #30 tab 05/16/24 Carvedilol [Coreg] 3.125 mg PO DAILY 30 Days #30 tab 05/16/24 Ibuprofen/Pseudoephedrine HCl [Advil Cold & Sinus Caplet] 1 each PO BID 20 Days #1 box 05/16/24 Ibuprofen/Pseudoephedrine HCl [Advil Cold-Sinus Liqui-Gels] 1 each PO BID 10 Days #1 box 05/16/24 - Past Medical/Surgical History Diabetic: No -: Asthma -: Chronic painfibromyalgia -: PTSD -: Iron deficiency anemia -: (3) back sx -: (2) neck sx -: LT ankle sx -: Cholecystectomy -: Hysterectomy - Family History Father -: Heart disease Notes: Grandpa ME. Uncle ME. Grandmother ME - Social History Alcohol use: No CD- Drugs: No Caffeine use: Yes Place of Residence: Home Review of Systems 10-point ROS is otherwise unremarkable Respiratory: Shortness of Breath Cardiovascular: Chest Pain Physical Examination - Physical Exam General: Alert, In no apparent distress, Oriented x3 HEENT: Atraumatic, PERRLA, Mucous membr. moist/pink, EOMI Neck: Supple, 2+ carotid pulse no bruit, No LAD Respiratory: Clear to auscultation bilaterally, Normal air movement Cardiovascular: Regular rate/rhythm, Normal S1 S2 Gastrointestinal: Normal bowel sounds, No tenderness Musculoskeletal: No tenderness Integumentary: No rashes Neurological: Normal gait, Normal speech, Normal strength at 5/5 x4 extr, Normal tone - Studies Laboratory Data (last 24 hrs) 07/01/24 07/01/24 07/01/24 14:05 14:05 14:05 WBC 5.00 Hgb 11.3 L Hct 37.4 Plt Count 244 PT 12.3 INR 1.10 Sodium 139 Potassium 3.7 BUN 12 Creatinine 0.98 Glucose 91 Magnesium 2.0 Total Bilirubin 0.5 AST 27 ALT 28 Alkaline Phosphatase 76 Assessment and Plan - Plan Assessment: Unstable anginaabnormal stress test History of asthma Iron deficiency anemia Fibromyalgia Plan: Unstable anginaabnormal stress test Cardiology consulted Plan for coronary angiogram today Further plan pending results from coronary angiogram History of asthma Iron deficiency anemia Fibromyalgia Continue home medications DVT PPX: Lovenox Code status: Full Discharge Plan: Home Plan to discharge in: 24 Hours - Advance Directives Does patient have a Living Will: No Does patient have a Durable POA for Healthcare: No - Code Status/Comfort Care Code Status Assessed: Yes (Full code) Critical Care: No Time Spent Managing Pts Care (In Minutes): 70
[2024-07-01 16:22] VITALS: O2SAT 97
[2024-07-01] MEDS: NA CHLORIDE 0.9% 1,000 ML IV SCH (16:46)
[2024-07-01 17:12] VITALS: BMI 30.7
--- NOTE | 2024-07-01 19:43 | CON ---
Date of Consultation: 07/01/2024 Reason For Consultation: Active chest pain after stress test. History Of Present Illness: This is a 43-year-old female who is being evaluated for chest pain as an outpatient basis. She was having a stress test today. After taken the resting images and putting h er on treadmill and the heart rate jumped up to 150s and then she started having active severe chest pain, pressure-like with nausea, vomiting, and diaphoresis. There were no EKG changes. However, sym ptoms suggestive of unstable angina versus [id number] myocardial infarction. She was sent by a mbulance to the emergency room. Troponin was negative. EKG without acute changes. However, she con tinues to have chest pressure and so she was sent emergently to the cardiac catheterization laborator y where coronary angiogram showed very mild coronary artery disease. Past Medical History: Posttraumatic stress disorder. Asthma. Medications: Refer to reconciliation sheet for detailed list. Allergies: AZITHROMYCIN AND PENICILLIN. Family History: No premature coronary artery disease or cancer. Social History: She does not smoke or drink. Does not use any drugs. Review of Systems: All systems reviewed and they were negative except as mentioned in the HPI. Physical Examination: Vital Signs: Reviewed. Head and Neck: Pupils are equal, reactive to light. Intact eye movements. No JVD. No cervical lym phadenopathy. Neck is supple. Thyroid is not enlarged. Lungs: Clear to auscultation bilaterally. No rhonchi, wheezing, or crackles. No accessory muscle u se. Heart: Regular rate and rhythm. No extra sounds. Abdomen: Soft, nontender. Bowel sounds positive. No organomegaly. No masses or hernia. No rigidi ty or rebound. Extremities: No edema, clubbing, or cyanosis. Intact pulses. Skin: No rash. No nodule. Neurologic: Alert, awake, oriented x3. No acute focal deficits appreciated. Investigations: Troponins negative. BUN is 12, creatinine 0.98. Assessment And Recommendations: 1.Exertional chest pain while on the treadmill with nausea, vomiting, and diaphoresis suggestive of unstable angina versus [id number] myocardial infarction. Admit, trend cardiac enzymes, and too k the patient emergently to the cardiac catheterization laboratory. She has mild coronary artery dis ease. We will observe her overnight for any arrhythmia on telemetry and trend 2 more sets of cardiac enzymes. No need to do an echo as she had an echo done recently as an outpatient, which looked okay . 2.Coronary artery disease. It is mild, as outlined above. Start her on aspirin and statin. 3.Tachycardia. It was sinus tachycardia, but her symptoms were very aggressive. We had to take her off the machine quickly, sent her to the emergency room and keep her on satellite project site monitor overnight and trend cardiac enzymes, and we will plan for discharge early tomorrow morning, if no abnormalities were found, and she will follow up with me on Saturday as scheduled. /NIKKI Voice ID: [id number] Report ID: [id number]
--- NOTE | 2024-07-01 19:49 | OP ---
Date of Procedure: 07/01/2024 Surgeon: TRISTON BROWN Procedures Performed: 1.Selective coronary angiogram. 2.Left heart catheterization. Indication: Acute coronary syndrome versus unstable angina. Access: Right common femoral artery 6-Serbian closed with StarClose. Complications: None. Bleeding: Less than 50 mL. Anesthesia: Total sedation time was 1 hour, used fentanyl and Versed. Description Of Procedure: After risks, benefits, and alternatives were explained, patient agreed to the procedure and signed informed consent. The patient was brought into the cardiac catheterization laboratory, prepped and draped in the usual sterile fashion. Then, I accessed right common femoral a rtery using micropuncture kit, ultrasound guidance, and fluoroscopy, placed a 6-Serbian [place] sheat h and took 6-Serbian JL4 catheter into the aortic root, engaged left main, took standard views. Then I exchanged for a 6-Serbian JR4 catheter and crossed the aortic valve over the wire, measured the LVED P. Pullback did not record any gradient. Then, I engaged the RCA, took standard views and then I re moved the catheter and then the sheath, and StarClose was used for closure with good hemostasis. Findings: 1.Left main is normal. 2.LAD; proximal 30% stenosis. Rest of it is normal. Normal diagonal branches. 3.Left circumflex; large and dominant and normal. 4.RCA; small, nondominant, and normal. 5.Normal LVEDP at 10 mmHg. Conclusion: Mild coronary artery disease, nonobstructive. Recommendation: Medical management. /MODL Voice ID: [id number] Report ID: [id number]
[2024-07-01] MEDS: ATORVASTATIN 40 MG TAB PO SCH (20:39)
[2024-07-01] MEDS: ESZOPICLONE 1 MG TAB PO PRN (23:50)
[2024-07-02 06:07] LABS: Absolute Basophils 0.1 K/uL (0-0.5); Absolute Eosinophils 0.2 K/uL (0-0.5); Absolute Lymphocytes (CBC) 2.2 K/uL (0.7-4.9); Absolute Monocytes 0.3 K/uL (0.1-1.3); Absolute Neutrophil 3.1 K/uL (1.8-8.0); Basophils % 1.2 % (0-1.3); Eosinophils % 3.4 % (0-4.4); Hematocrit 29.6 % (36.0-45.0); Hemoglobin 9.5 g/dL (12.0-15.0); Lymphocytes % 37.6 % (15.3-44.8); MCH 24.7 pg (27.0-35.0); MCHC 32.3 g/dL (32.0-36.0); MCV 76.4 fL (80-100); MPV 8.3 fL (7.6-11.3); Monocytes % 4.9 % (3.3-12.3); Neutrophils % 52.9 % (41.7-73.7); Platelets 201 thou/uL (152-406); RBC Red Blood Cell Count 3.87 M/uL (3.86-4.86); Red Cell Distribution Width 31.3 % (12.1-15.2)
[2024-07-02 06:32] LABS: Anion Gap 5.4 mEq/L (5.0-15.0); Potassium 3.4 mEq/L (3.5-5.1)
[2024-07-02 08:51] VITALS: BP 125/75; TEMP 98.1
[2024-07-02] MEDS: ASPIRIN EC 81 MG TAB PO SCH (09:06)
--- NOTE | 2024-07-02 12:29 | P.DS ---
Admission Date: 07/01/24 Discharge Date: 07/02/24 Disposition: ROUTINE DISCHARGE Discharge Condition: GOOD Reason for Admission: Unstable angina Consultations: Heart cath 07/01 Brief History of Present Illness: 43-year-old female with history of iron deficiency anemia, fibromyalgia, asthma presents emergency department chief complaint of chest pain. 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 She was referred to the emergency department for further evaluation. EKG was without STEMI criteria initial high sensitive troponin within normal limits, cardiology was aware of patient and plans for coronary angiogram today. Patient to be brought to [facility]. Hospital Course: Assessment: Unstable anginaabnormal stress test History of asthma Iron deficiency anemia Fibromyalgia Patient was admitted to the hospital for unstable angina after having an abnormal stress test in clinic. She was brought in for an emergent heart catheterization which was performed on 07/01 showed mild coronary artery disease, nonobstructive. CTA of the chest was performed and showed upper limit of normal diameter thoracic aorta at 4.3 cm. She did have some distal esophageal thickening noted on the CT scan, this was discussed further with her and she does have frequent reflux symptoms as well as periodically vomiting appears to be coffee-ground emesis. She has been in the past told that she had gastric u lcers, she also has fibromyalgia and chronic pain for which she has been taking NSAIDs/Aleve regularly. She was counseled to completely stop taking NSAIDs until otherwise instructed by her GI physician. She takes omeprazole already at home, will add Carafate. GI physician was waiting on cardiology clearance before further testing, now she has had a heart catheterization with nonobstructive CAD she can likely proceed with further testing with her GI doctor. Please follow-up with Dr. Koch in clinic as scheduled tomorrow 07/03 Follow-up with your primary care doctor 1 to 2 weeks Follow-up with GI as soon as possible for further testing including likely EGD Continue taking your home medications as previously prescribed including your omeprazole which recommend taking twice daily Discontinue use of all NSAIDs Cardiology does recommend taking baby aspirin 81 mg daily You may use Voltaren/diclofenac gel and small areas on her body especially around joints with pain Okay to use Lidoderm patches/Salonpas on other areas. Vital Signs/Physical Exam: Temp Pulse Resp BP Pulse Ox 98.1 F 61 17 125/75 100 07/02/24 08:00 07/02/24 08:00 07/02/24 08:00 07/02/24 08:00 07/02/24 08:00 General: Alert, In no apparent distress, Oriented x3 HEENT: Atraumatic, PERRLA, EOMI Neck: Supple, JVD not distended Respiratory: Clear to auscultation bilaterally, Normal air movement Cardiovascular: Regular rate/rhythm, Normal S1 S2 Gastrointestinal: Normal bowel sounds, No tenderness Musculoskeletal: No tenderness Integumentary: No rashes Neurological: Normal speech, Normal tone, Normal affect Laboratory Data at Discharge: WBC 5.80 thou/uL (4.3-10.9) 07/02/24 05:50 Hgb 9.5 g/dL (12.0-15.0) L D 07/02/24 05:50 Hct 29.6 % (36.0-45.0) L 07/02/24 05:50 Plt Count 201 thou/uL (152-406) 07/02/24 05:50 PT 12.3 SECONDS (9.4-12.5) 07/01/24 14:05 INR 1.10 07/01/24 14:05 Sodium 142 mEq/L (136-145) 07/02/24 05:50 Potassium 3.4 mEq/L (3.5-5.1) L 07/02/24 05:50 BUN 9 mg/dL (7-18) 07/02/24 05:50 Creatinine 0.81 mg/dL (0.55-1.02) 07/02/24 05:50 Glucose 77 mg/dL (74-106) 07/02/24 05:50 Magnesium 2.0 mg/dL (1.6-2.4) 07/01/24 14:05 Total Bilirubin 0.5 mg/dL (0.2-1.0) 07/01/24 14:05 AST 27 U/L (15-37) 07/01/24 14:05 ALT 28 U/L (13-56) 07/01/24 14:05 Alkaline Phosphatase 76 U/L (45-117) 07/01/24 14:05 Triglycerides 110 mg/dL (<150) 07/02/24 05:50 Cholesterol 161 mg/dL (<200) 07/02/24 05:50 HDL Cholesterol 42 mg/dL (40-60) 07/02/24 05:50 Cholesterol/HDL Ratio 3.83 07/02/24 05:50 Home Medications: Albuterol Sulfate [Proair Hfa] 8.5 gm IH PRN PRN 05/14/24 Gabapentin 600 mg PO TID 05/14/24 methocarbamoL [Methocarbamol] 750 mg PO TID 05/14/24 Atorvastatin Calcium [Lipitor] 40 mg PO BEDTIME 30 Days #30 tab 05/16/24 Eszopiclone [Lunesta*] 3 mg PO BEDTIME 07/01/24 Hydroxyzine HCl [Atarax] 25 mg PO Q6H PRN 07/01/24 Sucralfate [Carafate Liq] 10 ml PO QID #1200 ml 07/02/24 New Medications: Sucralfate [Carafate Liq] 10 ml PO QID #1200 ml Physician Discharge Instructions: Patient was admitted to the hospital for unstable angina after having an abnormal stress test in clinic. She was brought in for an emergent heart catheterization which was performed on 07/01 showed mild coronary artery disease, nonobstructive. CTA of the chest was performed and showed upper limit of normal diameter thoracic aorta at 4.3 cm. She did have some distal esophageal thickening noted on the CT scan, this was discussed further with her and she does have frequent reflux symptoms as well as periodically vomiting appears to be coffee-ground emesis. She has been in the past told that she had gastric ulcers, she also has fibromyalgia and chronic pain for which she has been taking NSAIDs/Aleve regularly. She was counseled to completely stop taking NSAIDs until otherwise instructed by her GI physician. She takes omeprazole already at home, will add Carafate. GI physician was waiting on cardiology clearance before further testing, now she has had a heart catheterization with nonobstructive CAD she can likely proceed with further testing with her GI doctor. Please follow-up with Dr. Koch in clinic as scheduled tomorrow 07/03 Follow-up with your primary care doctor 1 to 2 weeks Follow-up with GI as soon as possible for further testing including likely EGD Continue taking your home medications as previously prescribed including your omeprazole which recommend taking twice daily Discontinue use of all NSAIDs Cardiology does recommend taking baby aspirin 81 mg daily You may use Voltaren/diclofenac gel and small areas on her body especially around joints with pain Okay to use Lidoderm patches/Salonpas on other areas. Diet: GERD Activity: Ad robin Followup: Tone Newberry MD [Primary Care Provider] - 1-2 Weeks Aldair Koch MD [ACTIVE - CAN ADMIT] - 2-3 Days Ga Santana MD [ASSOCIATE-ACTIVE - CAN ADMIT] - 1 Week Time spent managing pt's care (in minutes): 35
--- NOTE | 2024-07-02 14:24 | RAD REPORT ---
EXAM DESCRIPTION: CT - Chest Angio - 07/02/2024 12:20 am CLINICAL HISTORY: 43 years Female poss dissection TECHNIQUE: Contiguous axial images obtained through the chest were obtained from the thoracic inlet to the level of the upper abdomen during the pulmonary arterial phase of intravenous contrast adminis tration. Coronal and sagittal reformatted and multiplanar MIP images provided. This CT exam was performed according to our departmental dose-optimization program, which includes on e or more of the following dose reduction techniques: automated exposure control, adjustment of the m A and/or kV according to patient size, and/or use of iterative reconstruction technique. COMPARISON: No prior exams provided for comparison. FINDINGS: There is no pulmonary embolus. Top normal caliber of the ascending aorta, measuring up to 4.3 cm. Normal caliber descending thoracic aorta. No thoracic aortic dissection, mediastinal hemorrhage, or pericardial effusion. The heart is normal in size. Fat-containing right anterior paraspinal/extrapleural lesion at T4 level is benign in appearance. No lymphadenopathy in the chest. The lungs are clear without consolidation, effusion, or pneumothorax. The central airways are patent. Mild thickening of the distal esophagus. Prior gastric sleeve surgery and cholecystectomy. No acute osseous abnormality. IMPRESSION: No pulmonary embolus. Top normal caliber of the ascending aorta, measuring up to 4.3 cm. No thoracic aortic dissection. Mild thickening of the distal esophagus. Correlate for esophagitis. Electronically signed by: Laya Fitzpatrick MD 07/02/2024 12:01 AM CDT RP Due to temporary technical issues with the PACS/Fluency reporting system, reports are being signed by the in house radiologists without review as a courtesy to insure prompt reporting. The interpreting radiologist is fully responsible for the content of the report.
== END 2024-07-02 10:50 | disposition home or self-care (01) ==
LOC: ER 13:29 → ERHOLD 14:11 → 2ND 15:21
PROVIDERS: ADMIT Hospitalist; ATTEND Hospitalist
PROC: 4A023N7 Measurement of Cardiac Sampling and Pressure, Left Heart, Percutaneous Approach (ICD-10-PCS; principal; 2024-07-01)
PROC: B2111ZZ Fluoroscopy of Multiple Coronary Arteries using Low Osmolar Contrast (ICD-10-PCS; 2024-07-01)
PROC: B2151ZZ Fluoroscopy of Left Heart using Low Osmolar Contrast (ICD-10-PCS; 2024-07-01)
DX: I25.110 Atherosclerotic heart disease of native coronary artery with unstable angina pectoris (principal); R00.0 Tachycardia, unspecified; J45.909 Unspecified asthma, uncomplicated; M79.7 Fibromyalgia; G89.29 Other chronic pain; D50.9 Iron deficiency anemia, unspecified; F43.10 Post-traumatic stress disorder, unspecified; Z79.899 Other long term (current) drug therapy; Z88.0 Allergy status to penicillin; Z88.1 Allergy status to other antibiotic agents; Z88.2 Allergy status to sulfonamides; Z88.8 Allergy status to other drugs, medicaments and biological substances; Z98.84 Bariatric surgery status; Z90.49 Acquired absence of other specified parts of digestive tract; Z82.49 Family history of ischemic heart disease and other diseases of the circulatory system
CPT/HCPCS: 36415; 71275; 80048; 80061; 80076; 83735; 83880; 84484; 85025; 85610; 86850; 86900; 86901; 93458; 99152; 99285; C1760; C1893; G0378; J0461; J1644; J1650; J2001; J2250; J2310; J2405; J3010; J7030; J7040; Q9966; Q9967